=== PATIENT | female | born 1990 | race African-American/Black ===

== ENCOUNTER → 2017-03-16 | Outpatient (CLI) | payer MEDICAID ==
[~2017-03-16] MED LIST: PREN1TAB PO; [UNRECOGNIZED DRUG - CODE] PO
== END ==
LOC: LAB 15:36
PROVIDERS: ATTEND Nurse Practitioner Obstetrics & Gynecology
DX: J02.9 Acute pharyngitis, unspecified (principal)
CPT/HCPCS: 87070; 87631

== ENCOUNTER 2017-07-09 12:04 | Inpatient (IN) ==
--- OUTSIDE RECORDS SUMMARY | 2017-07-09 12:10 | External Medical Summary | Referral Summary ---
:1990 Author Organization [facility] Address [address] [place] [address] DARIEL Joseph [address] Care Team Providers Name Role Phone NO PCP, PT STATES Primary Care Physician Unavailable Encounter VC Date(s): 03/21/16 - 03/21/16 [facility] [address] [place] [phone] [place] Discharge Diagnosis: Skin rash Discharge Disposition: 01-Home or Self Care Attending Physician: Fermin Corona MD Admitting Physician: Fermin Corona MD Vital Signs Most recent to oldest [Reference Range]: 1 Peripheral Pulse Rate [60-100 bpm] 74 bpm (03/21/16 10:57 AM) Respiratory Rate [14-20 br/min] 18 br/min (03/21/16 10:57 AM) Blood Pressure [90-140/60-90 mmHg] 118/72 mmHg (03/21/16 10:57 AM) SpO2 98 % (03/21/16 10:57 AM) Problem List No data available for this section Allergies, Adverse Reactions, Alerts Substance Reaction Severity Status Keflex Active penicillin Active Medications Implanon 68 mg subcutaneous implant 68 mg, SubCutaneous, Once, # 1 Each, 0 Refill(s) Start Date: 03/21/16 Status: Orderedmultivitamin Daily, 0 Refill(s) Start Date: 03/21/16 Status: Ordered Results No data available for this section Immunizations No data available for this section Procedures No data available for this section Social History Social History Type Response Smoking Status Never smoker Assessment and Plan Extracted from: Title: DOC, rash Author: Fermin Corona MD Date: 03/21/16 Assessment/Plan 1.Skin rash Etiology of the rash is uncertain. Inflammatory papules suggest possible insect bites. I don't see anything to suggest scabies. We discussed management of the itching sensation. Try to avoid excessive scratching. Prescription given for Medrol Dosepak and discussed expectations/side effects. I suggested superintendent terminal antihistamine such as Claritin or Zyrtec. Follow-up if not responding to this approach.
--- OUTSIDE RECORDS SUMMARY | 2017-07-09 12:10 | External Medical Summary | Continuity of Care Document ---
:1990 Author Organization [facility] Address [address] [place], [place] [id number] Phone Support Name Relationship Address Phone Dulce Palmer parent [address] [phone] [place] [address] Allergies, Adverse Reactions, Alerts Substance Reaction Severity Status Penicillins Unknown Unknown Active CEPHALEXIN MONOHYDRATE rash Unknown Active Medications Medication Instructions Dosage Effective Dates Status Comments (start - stop) hydroxyzine HCl 50 take 1 - 2 tablet 50 MG - Active mg tablet by ORAL route every 6 hours as needed for itching Rhophylac 1,500 unit - Active (300 mcg)/2 mL injection syringe Protonix 40 mg take 1 tablet by 40 MG - Active tablet,delayed oral route every release day multivitamin tablet take 1 tablet by Not Available - Active oral route every day with food Problems Condition Effective Dates (start - stop) Clinical Status Oth related conditions, - second trimester Encounter for suprvsn of normal - , second trimester 15 weeks gestation of - Striking against unsp object w - subsequent fall, init encntr Encounter for suprvsn of normal - , third trimester 29 weeks gestation of - Oth diseases and conditions compl - preg/chldbrth Encounter for suprvsn of normal - , third trimester 32 weeks gestation of - Acute pharyngitis, unspecified - 22 weeks gestation of - Vaginitis, Acute Pelvic and perineal pain Oth noninflammatory disorders of vulva and perineum Oth noninflammatory disorders of vulva and perineum Encntr screen for infections w sexl mode of transmiss Menorrhagia Irregular Menses Irregular Menses Irregular Menses Irregular Menses Vomiting of , unspecified Irregular Menses - Dysfunctional Uterine Bleeding Encounter for initial prescription of contraceptive pills Encounter for surveillance of other contraceptives Encounter for surveillance of other - contraceptives Dysfunctional Uterine Bleeding Encounter for surveillance of other contraceptives Oth related conditions, - second trimester 20 weeks gestation of - Oth related conditions, - second trimester Encounter for suprvsn of normal - , second trimester 19 weeks gestation of - Oth diseases and conditions compl - preg/chldbrth 34 weeks gestation of - Right lower quadrant pain 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 Pap Smear Screening, Cervix Encounter for test, result - negative Encntr screen for infections w sexl - mode of transmiss Encounter for screening for oth - infec/parastc diseases Encounter for suprvsn of normal - , first trimester Encounter for screening of - mother 10 weeks gestation of - Encounter for suprvsn of normal - , second trimester 19 weeks gestation of - Encounter for suprvsn of normal - , second trimester 22 weeks gestation of - Encounter for suprvsn of normal - , second trimester 26 weeks gestation of - Encounter for suprvsn of normal - , second trimester 25 weeks gestation of - Encounter for suprvsn of normal - , third trimester 34 weeks gestation of - Active Procedures Procedure Date Unknown Results Test Name Date and Time Measure Units Reference Range Abnormal Flag Comments Unknown Advance Directives Directive Yes / No Effective Date File Name Unknown Encounters Encounter Practice Location Reason(s) Diagnoses Date Provider Care Team Description For Visit Members Tatiana [place] Encounter for May- Jose Referring In Womens suprvsn of normal 0-201 Robins. 700 Provider: Estephania BRADFORD, , third 7 Medical Jackie PO Box [email or web address] weeks Center [facility], 1522, gestation of Umesh Chamberlain, 120, Medical DARIEL [facility] [id number], [place], Umesh 120, [place] [id number] [place], tel:+ , [place]. [place], tel: [phone] tel:[phone] Associates Juan Pablo Oth diseases and May- Jose Referring In Womens Ultrasound conditions compl 0-201 Robins. 700 Provider: Estephania BRADFORD, [id number]/[email or web address] 7 Medical Jackie PO Box weeks gestation [facility], 1522, of Umesh Chamber[place], 120, Medical DARIEL [facility] [id number], [place], Umesh 120, [place] [id number] Juan Pablo, tel: , [place], tel:[phone] tel:[phone] Tatiana [place] Aug-0 León In Womens 2-201 Nora. Rosalia Mayorga PO [facility] [address], [address] [place], [facility] [place], 120, [id number], [place], [place], tel: [phone] , [place]. tel: [phone] Tatiana [place] Oth diseases and Apr- Jose Referring In Womens conditions compl 7-201 Robins. 700 Provider: Estephania BRADFORD, preg/chljoaorthEnco 7 Medical Jackie PO Box unter for suprvsn Center [facility], 1522, of normal Umesh Chamberlain, , third 120, Medical [place], [email or web address] [facility] [id number] gestation of [place], Umesh 120, [place] [id number] Juan Pablo, tel: , [place]. [place], tel: [phone] tel:[phone] Tatiana [place] Striking against Apr-0 León Referring In Womens unsp object w 5-201 Nora. Provider: Estephania BRADFORD, subsequent fall, 7 700 Jackie PO Box init Medical Lewis T, 152, encntrEncounter Center [address] [place] [address], for suprvsn of Umesh Chamberlain, normal , 120, Center [id number], third [email or web address] [place], [facility] 120, [place] weeks gestation Juan Pablo VIEIRA, tel:[phone] [place], , [place]. [id number]. tel: tel:[phone] [place] Encounter for Jt-2 Lewis Referring In Womens suprvsn of normal 0-201 Jackie. Provider: Estephania BRADFORD, , second 7 700 Jackie PO Box [id number] weeks Medical Lewis T, 152, gestation of Center [address] [place] [address], Umesh [place]lain [place], 120, Center [id number], Juan Pablo [facility] 120, [place] Juan Pablo VIEIRA, tel:[phone] DARIEL, , [place]. [id number]. tel: tel:[phone] [place] Encounter for Jt-0 Lewis Referring In Womens suprvsn of normal 9-201 Jackie. Provider: Estephania BRADFORD, , second 7 700 Jackie PO Box [email or web address] weeks Medical Lewis T, 152, gestation of Center [address] [place] [address], Umesh [place], 120, Center [id number], Juan Pablo [facility] 120, [place] Juan Pablo VIEIRA, tel:+ [phone] DARIEL, , [place]. [id number]. tel: tel:[phone] [place] Encounter for May-2 Lewis Referring In Womens suprvsn of normal 3-201 Jackie. Provider: Estephania BRADFORD, , second 7 700 Jackie PO Box [email or web address] weeks Medical Lewis T, 1522, gestation of Center [address] [place] [address], Umesh [place], 120, Center [id number], Juan Pablo [facility] 120, [place] Juan Pablo VIEIRA, tel:[phone] DARIEL, , [place]. [id number]. tel: tel:[phone] [place] Acute May-1 Lewis Referring In Womens pharyngitis, 8-201 Jackie. Provider: Health PA, [id number] 7 700 Jackie PO Box weeks gestation Medical Lewis T, 1522, of Center [facility] [place], , Umesh VIEIRA, 120, Center [id number], Juan Pablo [facility] 120, [place] Juan Pablo VIEIRA, tel:[phone] [place], , [place]. [id number]. tel: tel:[phone] Tatiana [place] Oth May-0 Lewis Referring In Womens related 8-201 Jackie. Provider: Health SANCHEZ, conditions, 7 700 Jackie PO Box second Medical Lewis T, 1522, [email or web address] weeks Center [facility] [place], gestation of Umesh Chamberlain, 120, Center [id number], Juan Pablo [facility] 120, [place] Juan Pablo VIEIRA, tel:[phone] [place], , [place]. [id number]. tel: tel:[phone] Tatiana [place] Oth Apr-2 Lewis Referring In Womens related 6-201 Jackie. Provider: Estephania PA, conditions, 7 700 Jackie PO Box second Medical Lewis T, 1522, trimesterEncounte Center [facility] [place], r for suprvsn of Umesh Chamberlain, normal , 120, Center [id number], second Juan Pablo [facility] 120, [place] [id number] weeks Jua nPablo VIEIRA, tel: gestation of [place], , [place]. [id number]. tel: tel:[phone] Tatiana [place] Encounter for Apr-2 Lewis Referring In Womens Ultrasound suprvsn of normal 6-201 Jackie. Provider: Health PA, , second 7 700 Jackie PO Box [id number] weeks Medical Lewis T, 1522, gestation of Center [facility] [place], Umesh Chamberlain, 120, Center [id number], Juan Pablo [facility] 120, [place] Juan Pablo VIEIRA, tel:[phone] [place], , [place]. [id number]. tel: tel:[phone] Associates [facility] Pablo Oth Mar-3 Lewis Referring In Womens related 0-201 Jackie. Provider: Estephania BRADFORD, conditions, 7 700 Jackie PO Box second Medical Lewis T, 152, trimesterEncounte Center [address] [place] [address], r for suprvsn of , [facility] DARIEL, normal , 120, Center [id number], second Juan Pablo [facility] 120, [place] [id number] weeks Juan Pablo VIEIRA, tel:[phone] gestation of [phone] [place], , [place]. [id number]. tel: tel:[phone] Associates [facility] Pablo Encntr screen for Feb-2 Lewis Referring In Womens infections w sexl 7-201 Jackie. Provider: Estephania BRADFORD, mode of 7 700 Jackie PO Box transmissEncounte Medical Lewis T, 152, r for screening Center [address] [place] [address], for oth [facility], infec/parastc 120, Center [id number], diseasesEncounter Juan Pablo [facility] 120, [place] for suprvsn of Juan Pablo VIEIRA, tel:+ normal , [phone] [place], first , [place]. [id number]. trimesterEncounte tel: tel:[phone] r for [phone] screening of weeks gestation of Associates [place] Pablo Irregular Menses Oct- Lewis Referring In Womens 0-201 Jackie. Provider: Estephania BRADFORD, 7 700 Jackie PO Box Medical Lewis T, 152, Center [address], [facility], 120, Center [id number], Juan Pablo [facility] 120, [place] Juan Pablo VIEIRA, tel: [phone] [place], , [place]. [id number]. tel: tel:[phone] Associates [facility] Irregular Menses Oct- Lewis Referring In Womens Ultrasound 0-201 Jackie. Provider: Estephania BRADFORD, 7 700 Jackie PO Box Medical Lewis T, 152, Center [address], [facility], 120, Center [id number], Juan Pablo [facility] 120, [place] Juan Pablo VIEIRA tel: [phone] [place], , [place]. [id number]. tel: tel: [phone] Associates [facility] Irregular Lewis Referring In Womens MensesVomiting of -201 Jackie. Provider: Health SANCHEZ, , 7 700 Jackie PO Box unspecified Medical Lewis T, 1522, Center [address], [facility], 120, [place] , Juan Pablo [facility] 120, Juan Pablo VIEIRA, tel: [phone] [place], , [place]. [id number]. tel: tel: [phone] Associates [facility] Pablo MenorrhagiaIrregu Lewis Referring In Womens lar 2-201 Jackie. Provider: Estephania BRADFORD, MensesIrregular 7 700 Nora León PO Box Mens Medical K, 700 1522, [place] [address], [facility] [place], 120, [facility] 120, , Juan Pablo [place], [facility], [place], tel: [phone]. , [place]. tel: tel: [phone] Associates Jaun Pablo Vaginitis, Aug-0 Lewis In Womens AcutePelvic and -201 Jackie. Health SANCHEZ, perineal pain 6 700 PO Box Medical [address]22, [place] [address] [place], [facility] DARIEL, 120, [id number], [place], DARIEL, tel:[phone] , [place]. tel: [phone] Associates [facility] Pablo Dysfunctional Aug-2 León In Womens Uterine 3-201 Nora. Health SANCHEZ, BleedingEncounter 6 700 PO Box for initial Medical 1522, prescription of Elias Kevin contraceptive , [facility], pillsEncounter 120, , for surveillance [place] Juan [place] of other [place], tel: contraceptivesEnc [phone] ounter [facility] , [place]. surveillance of tel: other [phone] contraceptives Associates Juan Pablo Right lower Caleb-2 León In Womens quadrant pain 9-201 Nora. Health PA, 6 700 PO Box Medical 1522, [place] [address] [place], 120, [id number], Juan Pablo [place], tel:+ [phone] , [place]. tel:[phone] Associates [facility] Pablo Oth May-0 León In Womens noninflammatory 5-201 Nroa. Health SANCHEZ, disorders of 6 700 PO Box vulva and Medical 1522, perineum [address] [place], 120, [id number], Juan [place], tel:[phone] , [place]. tel:[phone] Associates [facility] Pablo Ot May-0 Jeanie In Womens noninflammatory 2-201 Rebecca. Health PA, disorders of 6 700 PO Box vulva and Medical 1522, perineumEncntr [facility], screen for Umesh [place]lain, infections w sexl 120, , mode of transmiss [place], tel:+ [phone] , [place]. tel:[phone] Associates [facility] Pablo Dysfunctional Apr-0 León In Womens Uterine 8- Nora. Health SANCHEZ, BleedingEncounter 6 700 PO Box for surveillance Medical 1522, of other [place], contraceptives Umesh Chamberlain, 120, , [place], tel:+ [phone] , [place]. 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 Health PA, (routine) w/o abn 5 700 PO Box findingsPap Smear Medical 1522, Screening, [facility], CervixEncounter Umesh [place], for 120, , test, result [place] Juan [place] negative [place], tel:[phone] , [place]. tel:[phone] Associates [facility] Pablo Caleb-2 Jeanie In Womens 2-201 Rebecca. Health SANCHEZ, 5 700 PO Box Medical 1522, [place] [address] [place], 120, , [place], tel:+ [phone] , [place]. tel: [phone] Tatiana [place] Jan- León In Womens 9-201 Nora. Health PA, 5 700 PO [facility] 1522, [place] [address] [place], [facility] [place], 120, [id number], [facility] [place], tel:+ [phone] , [place]. tel: [phone] Tatiana [place] Apr- Jeanie In Womens 8-201 Rebecca. [employer] PA, 1 700 PO [facility] 1522, [place] [address] [place], [facility] [place], 120, [id number], [facility] [place], tel: [phone] , [place]. tel: [phone] Family History Family Member Diagnosis Age At Onset No family history of Colon Cancer No family history of Cardiovascular Disease No family history of Stroke No family history of Uterine Cancer No family history of Osteoporosis No family history of Breast Cancer Maternal Grandmother Ovarian Cancer No family history of Diabetes Paternal Grandfather Epilepsy Paternal Grandmother Hypertension Paternal Grandmother Renal disease Mother Thyroid Disorder Mother Cervical Cancer No family history of Lung Disease Immunizations Vaccine Date Status Comments Rhophylac completed Source: New Immunization Record Payers Payer name Insurance type Covered constitution party ID Authorization(s) [facility] [id number] [employer] - Medicaid [place] [id number] [facility] [id number] [employer] - Medicaid [place] [id number] Social History Type Description Quantity Date Captured Unknown Vital Signs Date / Height Weight BMI Pulse Blood Temperature Respiratory Body Head BMI Time: Rate Pressure Rate Surface Circumference percentile Area Unknown Chief Complaint And Reason For Visit Unknown Chief Complaint And Reason For Visit Reason For Referral Reason For Referral Unknown Plan Of Care Date Type Action Status Goal Lifestyle education regarding completed diet Goal Lifestyle education regarding completed diet Appointment Laurie Palmer BOOKED Future Order: Radiology Order Ultrasound OB Follow-up ([id number]) Ordered Future Order: Radiology Order Complete OB Ultrasound > 14 Ordered Weeks ([id number]) Date Type Problem Goal Intervention Status Start Date Unknown. History Of Present Illness Encounter Date Complaint History Of Present Illness This patient has no known history of present illness Functional Status Encounter Date Functional Assessment Cognitive Assessment Unknown Medications Administered Medication Instructions Dosage Effective Dates (start - stop) Status Comments Drug Treatment Unknown Instructions Date Instruction Additional Information risk factors identified by history anticipated course of care nutrition and weight gain counseling, special diet toxoplasmosis precautions (cats / raw meat) sexual activity exercise smoking counseling domestic violence seat belt use childbirth classes / hospital facilities hospital registration indications for ultrasound influenza vaccine environmental / work hazards travel tobacco (ask, advise, assess, assist and arrange) alcohol illicit / recreational drugs use of any medications (including supplements, vitamins, herbs, OTC drugs) HIV and other routine tests genetic testing new ob handbook Giving encouragement to exercise Related to Body mass index 27.0-27.9 Lifestyle education regarding diet Related to Body mass index 27.0-27.9 Giving encouragement to exercise Related to Body mass index 27.0-27.9 Lifestyle education regarding diet Related to Body mass index 27.0-27.9
--- OUTSIDE RECORDS SUMMARY | 2017-07-09 12:10 | External Medical Summary | Continuity of Care Document ---
:1990 Author Organization [facility] Address [address] [place], [place] [id number] Phone Support Name Relationship Address Phone Dulce Palmer parent [address] [phone] [place] [address] Allergies, Adverse Reactions, Alerts Substance Reaction Severity Status Penicillins Unknown Unknown Active CEPHALEXIN MONOHYDRATE rash Unknown Active Medications Medication Instructions Dosage Effective Dates Status Comments (start - stop) valacyclovir 500 mg take 1 tablet by 500 MG - Active tablet oral route every 12 hours Fioricet 50 mg-300 take 1 capsule by Not Available - Active mg-40 mg capsule oral route every 6 hours as needed not to exceed 6 capsules per 24hrs hydroxyzine HCl 50 take 1 - 2 [...] Dates (start - stop) Clinical Status Oth diseases and conditions compl - preg/chldbrth 34 weeks gestation of - Oth related conditions, - second trimester Encounter for suprvsn of normal - , second trimester 15 weeks gestation of - Striking against unsp object w - subsequent fall, init encntr Encounter for suprvsn of normal - , third trimester 29 weeks gestation of - Oth diseases and conditions compl - preg/chldbrth 32 weeks gestation of - Encounter for suprvsn of normal - , third trimester Encounter for suprvsn of normal - , third trimester Encounter for screening of - mother 36 weeks gestation of - Acute pharyngitis, unspecified - 22 weeks gestation of - Vaginitis, Acute Pelvic and perineal pain Oth noninflammatory disorders of vulva and perineum Oth noninflammatory disorders of vulva and perineum Encntr screen for infections w sexl mode of transmiss Menorrhagia Irregular Menses Irregular Menses Dysfunctional Uterine Bleeding Encounter for surveillance of other contraceptives Dysfunctional Uterine Bleeding Encounter for initial prescription of contraceptive pills Encounter for surveillance of other contraceptives Encounter for surveillance of other - contraceptives Vomiting of , unspecified Irregular Menses Irregular Menses - Irregular Menses Oth related conditions, - second trimester Encounter for suprvsn of normal - , second trimester 19 weeks gestation of - Oth related conditions, - second trimester 20 weeks gestation of - Encounter for test, result - negative 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 Pap Smear Screening, Cervix Right lower quadrant pain Encntr screen for infections w sexl - [...] third trimester 34 weeks gestation of - Encounter for suprvsn of normal - , third trimester 37 weeks gestation of - Active Procedures Procedure Date Ultrasnd preg uterus, flwup/repeat Results Test Name Date and Time Measure Units Reference Range Abnormal Flag Comments Unknown Advance Directives Directive Yes / No Effective Date File Name Unknown Encounters Encounter Practice Location Reason(s) Diagnoses Date Provider Care Team Description For Visit Members Tatiana [place] Encounter for May-3 Jose Referring In Womens suprvsn of normal 1-201 [place]. 700 Provider: Estephania [place], , third 7 Medical Jackie PO Box [id number] weeks [facility], 1522, gestation of [place], 120, Medical [facility] [id number], [place], [place] 120, [place] [id number] Juan Pablo, tel: , [place]. [place], tel: [phone]. [id number] tel:[phone] Tatiana [place] Encounter for Aug-2 Jose Referring In Womens suprvsn of normal 4-201 [place]. 700 Provider: Estephania BRADFORD, , third 7 Medical Jackie PO Box [facility], 1522, r for [place], screening of 120, Medical [place], [email or web address] [facility] of [place], [place] 120, [place] [id number] Juan Pablo, tel: , [place]. [place], tel: [phone]. [phone] tel:[phone] Tatiana [place] Aug-2 Jose In Womens 3-201 [place]. 700 [facility], 7 Medical PO Box Center 1522, U[place] Chamberlain, 120, Juan Pablo VIEIRA [id number], [place], [place] [id number] tel: , [place]. tel: [phone] Tatiana [place] Encounter for Aug-1 Jose Referring In Womens suprvsn of normal 0-201 Ar. 700 Provider: Estephania BRADFORD, , third 7 Medical Jackie PO Box weeks Center Debbie Quiros, 1521, gestation of [place], 120, Medical [facility] [id number], [place], [place] 120, [place] [id number] Juan Pablo, tel: , [place]. [place], tel:[phone]. [phone] tel:[phone] Associates Juan Pablo Oth diseases and May- Jose Referring In Womens Ultrasound conditions compl 0-201 [place]. 700 Provider: Estephania BRADFORD, preg/[id number] 7 Medical Jackie PO Box weeks gestation [place] Debbie Quiros, 1521, of [place] Chamberlain, 120, Medical [facility] [id number], [place], [facility] 120, [place] [id number] Juan Pablo, tel: , [place]. [place], tel:[phone]. [id number] tel:[phone] [facility] Oth diseases and Apr-2 Jose Referring In Womens conditions compl 7-201 [place]. 700 Provider: Estephania BRADFORD, [email or web address] 7 Medical Jackie PO Box weeks gestation [place] Debbie Quiros, 1521, of [place]lain, pregnancyEncounte 120, Medical DARIEL, r [facility] [id number], normal , [place], [facility] 120, [place] third trimester [id number] Juan Pablo, tel: , [place]. [place], tel: [phone]. [id number] tel:[phone] Tatiana [place] Striking against Caleb-0 León Referring In Womens unsp object w 5-201 Nora. Provider: Estephania BRADFORD, subsequent fall, [facility] Jackie PO Box init [facility], 1521, encntrEncounter [place] Mariana Kevin, for suprvsn of [place] Chamberlain, normal , 120, Center [id number], third [id number] [place], [facility] 120, [place] weeks gestation Juan Pablo VIEIRA, tel: of [phone] [place], [phone] , [place]. [id number]. tel: tel:[phone] Tatiana [place] Encounter for Jt-2 Lewis Referring In Womens suprvsn of normal 0-201 Jackie. Provider: Health SANCHEZ, , second 7 700 Jackie PO Box [email or web address] weeks Medical Lewis T, 1522, gestation of Center [address] [place] [address], Umesh Chamberlain [place], 120, Center [id number], Juan Pablo [facility] 120, [place] Juan Pablo VIEIRA, tel:[phone] [place], , [place]. [id number]. tel: tel:[phone] Associates [facility] Encounter for Jt-0 Lewis Referring In Womens suprvsn of normal 9-201 Jackie. Provider: Health SANCHEZ, , second 7 700 Jackie PO Box [email or web address] weeks Medical Lewis T, 1522, gestation of Center [address] [place] [address], Umesh Chamberlain, 120, Center [id number], Juan Pablo [facility] 120, [place] Juan Pablo VIEIRA, tel:[phone] [place], , [place]. [id number]. tel: tel:[phone] Tatiana [place] Encounter for May-2 Lewis Referring In Womens suprvsn of normal 3-201 Jackie. Provider: Estephania BRADFORD, , second 7 700 Jackie PO Box [email or web address] weeks Medical Lewis T, 1522, gestation of Center [address] [place] [address], Umesh Chamberlain [place], 120, Center [id number], Juan Pablo [facility] 120, [place] Juan Pablo VIEIRA, tel:[phone] [place], , [place]. [id number]. tel: tel:[phone] Tatiana [place] Acute May-1 Lewis Referring In Womens pharyngitis, 8-201 Jackie. Provider: Health SANCHEZ, [email or web address] 7 700 Jackie PO Box weeks gestation Medical Lewis T, 1522, of Center [address] [place] [address], Umesh [place], 120, Center [id number], Juan Pablo [place] 120, [place] Juan Pablo VIEIRA, tel:[phone] [place], , [place]. [id number]. tel: tel:[phone] Tatiana [place] Oth May-0 Lewis Referring In Womens related 8-201 Jackie. Provider: Health [place], conditions, 7 700 Jackie PO Box second Medical Lewis T, 1522, [email or web address] weeks Center 700 [place], gestation of Umesh Chamberlain, 120, Center [id number], Juan Pablo [facility] 120, [place] Juan Pablo VIEIRA, tel:[phone] [place], , [place]. [id number]. tel: tel:[phone] Tatiana [place] Oth Apr-2 Lewis Referring In Womens related 6-201 Jackie. Provider: Health [place], conditions, 7 700 Jackie PO Box second Medical Lewis T, 1522, [facility] [address] [place], [place] [address]ta, r for suprvsn of U[place] Chamberlain, normal , 120, Center [id number], [facility] Juan Pablo [facility] 120, [place] [id number] weeks Juan Pablo VIEIRA, tel:[phone] gestation of [id number] [place], , [place]. [id number]. tel: tel:[phone] Tatiana [place] Encounter for Apr-2 Lewis Referring In Womens Ultrasound suprvsn of normal 6-201 Jackie. Provider: Estephania BRADFORD, , second 7 700 Jackie PO Box [id number] weeks Medical Lewis T, 1522, gestation of Center [address] [place] [address], U[place] Chamberlain, 120, Center [id number], Juan Pablo [facility] 120, [place] Juan Pablo VIEIRA, tel:[phone] [place], , [place]. [id number]. tel: tel:[phone] Tatiana [place] Oth Mar-3 Lewis Referring In Womens related 0-201 Jackie. Provider: Health SANCHEZ, conditions, 7 700 Jackie PO Box second Medical Lewis T, 1522, trimesterEncounte Center [address] [place] [address], r for suprvsn of U[place] Chamberlain, normal , 120, Center [id number], second [facility] 120, [place] [id number] weeks Juan Pablo VIEIRA, tel:+ gestation of [phone] [place], , [place]. [id number]. tel: tel:[phone] [facility] Encntr screen for Feb-2 Lewis Referring In Womens infections w sexl 7-201 Jackie. Provider: Estephania BRADFORD, mode of 7 700 Jackie PO Box transmissEncounte Medical Lewis T, 1522, r for screening Center [facility] [place], for oth , [facility], infec/parastc 120, Center [id number], diseasesEncounter [facility] 120, [place] for suprvsn of Juan Pablo VIEIRA, tel:[phone] normal , [phone] [place], first , [place]. [id number]. trimesterEncounte tel: tel:[phone] r for [phone] screening of [id number] weeks gestation of Associates Juan Pablo Irregular Menses Lewis Referring In Womens 0-201 Jackie. Provider: Estephania BRADFORD, 7 700 Jackie PO Box Medical Lewis T, 1522, Center [facility] Dr [place], [facility], 120, Center [id number], [facility] 120, [place] Juan Pablo VIEIRA, tel:[phone] [place], , [place]. [id number]. tel: tel:[phone] Tatiana [place] Irregular Menses Lewis Referring In Womens Ultrasound 0-201 Jackie. Provider: Estephania BRADFORD, 7 700 Jackie PO Box Medical Lewis T, 1522, Center [facility] Dr [place], [facility], 120, Center [id number], [facility] 120, [place] Juan Pablo VIEIRA, tel:[phone] [place], , [place]. [id number]. tel: tel:[phone] [facility] Vomiting of Lewis Referring In Womens , 9-201 Jackie. Provider: Estephania BRADFORD, unspecifiedIrregu 7 700 Jackie PO Box lar Menses Medical Lewis T, 1522, Center [address] [place], [facility] [place], 120, [place] [id number], Juan Pablo, [facility] 120, DARI[place], Juan Pablo, tel:[phone] [place], , . [id number]. tel: tel: [phone] [facility] MenorrhagiaIrregu Lewis Referring In Womens lar 2-201 Jackie. Provider: Estephania BRADFORD, MensesIrregular 7 700 Nora León PO Box Menses Medical K, 700 1522, [place] [address], [facility] [place], 120, [facility] 120, , Juan [place], [place], [place], tel:[phone]. , [place]. tel: tel: [phone] [facility] Vaginitis, Aug-0 Lewis In Womens AcutePelvic and -201 Jackie. Estephania BRADFORD, perineal pain 6 700 PO Box Medical 1522, [place] [address] [place], [facility], 120, [id number], [place], [place], tel:[phone] , [place]. tel: [phone] [facility] Dysfunctional Aug-2 León In Womens Uterine 3-201 Nora. Health SANCHEZ, BleedingEncounter 6 700 PO Box for initial Medical 1522, prescription of [place], contraceptive , [facility], pillsEncounter 120, , for surveillance [facility] of other [place], tel: contraceptivesEnc [phone] [facility] , . surveillance of tel: other [phone] contraceptives Associates Juan Pablo Right lower Caleb-2 León In Womens quadrant pain 9-201 Nora. Estephania BRADFORD, 6 700 PO Box Medical 1522, [place] [address] [place], [facility], 120, [id number], [place], [place], tel: [phone] , [place]. tel: [phone] Associates [facility] Pablo Oth May-0 León In Womens noninflammatory 5-201 Nora. Health SANCHEZ, disorders of 6 700 PO Box vulva and Medical 1522, perineum Center [address] [place], 120, , [place], tel:+ [phone] , [place]. tel:[phone] [facility] Oth May-0 Jeanie In Womens noninflammatory 2-201 Rebecca. Health SANCHEZ, disorders of 6 700 PO Box vulva and Medical 1522, perineumEncntr [facility], screen for [place], infections w sexl 120, , mode of transmiss [place], [place], tel:[phone] , [place]. tel:[phone] [facility] Dysfunctional Apr-0 León In Womens Uterine 8- Nora. Health SANCHEZ, BleedingEncounter 6 700 PO Box for surveillance Medical 1522, of other Center [place], contraceptives Umesh [place], 120, , [place], [place], tel:[phone] , [place]. tel: [phone] Tatiana [place] Encounter for Dec-0 León In Womens test, - Nora. 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 tel: [phone] Tatiana [place] Caleb-2 Jeanie In Womens 2-201 Rebecca. Health SANCHEZ, 5 700 PO Box Medical 1522, [place] [address] [place], 120, [id number], [place], [place], tel:[phone] , [place]. tel:[phone] Tatiana [place] Apr-0 León In Womens 9-201 Nora. Health SANCHEZ, 5 700 PO Box Medical 1522, [place] [address] [place], 120, , Juan Pablo [place], tel:[phone] , [place]. tel:[phone] Tatiana [place] Jeanie In Womens 8-201 Rebecca. [facility], 1 700 PO [facility] 1522, [place] [address] [place], [facility] [place], 120, [id number], [place], [place], [phone] , [place]. tel: [phone] Family History Family Member Diagnosis Age At [...] Lung Disease Immunizations Vaccine Date Status Comments Tdap completed Source: New Immunization Record Rhophyla completed Source: New Immunization Record Payers Payer name Insurance type Covered green party ID Authorization(s) [facility] [id number] [employer] [place] [employer] - Medicaid MC [id number] [facility] [id number] [employer] [place] [employer] - Medicaid [place] [id number] [facility] [id number] [employer] [place] [employer] - Medicaid [place] [id number] Social History Type Description Quantity Date Captured [...] Future Order: Radiology Order Ultrasound OB Follow-up ([id number]) Ordered Future Order: Radiology Order Complete OB Ultrasound > 14 Ordered Weeks ([id number]) Date Type Problem Goal Intervention Status Start [...]
--- OUTSIDE RECORDS SUMMARY | 2017-07-09 12:10 | External Medical Summary ---
:1990 Author Organization [employer] Care Team Providers Name Role Phone Arcadiosheelasheela Cassia Provider Role Unavailable Allergies, Adverse Reactions, Alerts Substance Reaction Event Type Penicillin Info Not Available Drug Allergy Keflex Info Not Available Drug Allergy steroids vomiting Non Drug Allergy Problems Problem Type Condition Code Onset Dates Condition Status Assessment Intractable migraine with aura with G43.111 Active status migrainosus Medications Medication Code Code Instructions Start End Status Dosage System Date Date Promethazine HCl [facility] 50074-89 12.5 MG Orally Jun 30, Jul 30, 1 tablet 40-01 Daily PRN 2015 2015 migraine Multivitamins NDC 59675-23 Orally as directed 46-10 [place] [address]-37 50 MCG/ACT April 22, spray in 53-01 Nasally each 2012 [place] [address] 25 MG Orally Jun 30, One at 35-00 Once/week prn 2015 beginning of migraine, may repeat in two hours Procedures Procedure Coding System Code Date INJECTION (plus drug) CPT-4 12636 Jun 30, 2016 TORADOL 30MG CPT-4 J1885 Jun 30, 2016 DEXAMETHASONE SODIUM PHOSPHATE CPT-4 J1100 Jun 30, 2016 OFFICE VISIT, EST-LOW COMPLEXITY (15 MIN.) CPT-4 91544 Jun 30, 2016 Vital Signs Date/Time: Jun 30, 2016 Temperature 98.5 F Height 64 in Weight 160.12 lbs Blood Pressure Diastolic 82 mm Hg Blood Pressure Systolic 118 mm Hg Cardiac Monitoring Heart Rate 68 /min BMI 27.48 Index Oximetry 98 % Respiratory Rate 16 /min Results No Known Results Summary Purpose [employer]ClinicalWorks Submission
--- OUTSIDE RECORDS SUMMARY | 2017-07-09 12:10 | External Medical Summary | Continuity of Care Document ---
:1990 Author Organization [facility] Address [address] [place], [place] [id number] Phone Support Name Relationship Address Phone Dulce Palmer parent [address] [phone] [place] [address] Allergies, Adverse Reactions, Alerts Substance Reaction Severity Status Penicillins Unknown Unknown Active CEPHALEXIN MONOHYDRATE rash Unknown Active Medications Medication Instructions Dosage Effective Dates Status Comments (start - stop) Rhophylac 1,500 unit - Active (300 mcg)/2 mL injection syringe Fioricet 50 mg-300 take 1 capsule by Not Available - Active mg-40 mg capsule oral route every 6 hours as needed not to exceed 6 capsules per 24hrs Protonix 40 mg take 1 tablet by 40 MG - Active tablet,delayed oral route every release day multivitamin tablet take 1 tablet by Not Available - Active oral route every day with food Problems Condition Effective Dates (start - stop) Clinical Status Striking against unsp object w - subsequent fall, in encntr Encounter for suprvsn of normal - , third trimester 29 weeks gestation of - Oth related conditions, - second trimester Encounter for suprvsn of normal - , second trimester 15 weeks gestation of - Acute pharyngitis, unspecified [...] Menses Oth related conditions, - second trimester 20 weeks gestation of - Encounter for test, result - negative 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 Provider: Estephania [place], subsequent fall, 700 Jackie PO Box in Medical Debbie T, 1522, encntrEncounter Center [address] [place], for suprvsn of Umesh Chamberlain, normal , 120, Center [id number], third [id number] Juan Pablo, [facility] 120, [place] weeks gestation Juan Pablo VIEIRA, tel:+ of [phone] [place], , [place]. [id number]. tel: tel:[phone] Tatiana Almeida Encounter for Jt-2 Lewis Referring In Womens suprvsn of normal 0-201 Jackie. Provider: Health SANCHEZ, , second 7 700 Jackie PO Box [id number] weeks Medical Lewis T, 1522, gestation of Center [address] [place] [address], Umesh Chamberlain [place], 120, Center [id number], Juan Pablo [facility] 120, [place] Juan Pablo VIEIRA, tel:[phone] [place], , [place]. [id number]. tel: tel:[phone] Tatiana [place] Encounter for Jt-0 Lewis Referring In Womens suprvsn of normal 9-201 Jackie. Provider: Health SANCHEZ, , second 7 700 Jackie PO Box [id number] weeks Medical Lewis T, 1522, gestation of Center [address] [place] [address], Umesh Chamberlain [place], 120, Center [id number], Juan Pablo [facility] 120, [place] Juan Pablo VIEIRA, tel:[phone] [place], , [place]. [id number]. tel: tel:[phone] Tatiana [place] Encounter for May-2 Lewis Referring In Womens suprvsn of normal 3-201 Jackie. Provider: Health SANCHEZ, , second 7 700 Jackie PO Box [id number] weeks Medical Lewis T, 1522, gestation of Center [address] [place] [address], Umesh [place], 120, Center [id number], Juan Pablo [facility] 120, [place] Juan Pablo VIEIRA, tel:[phone] [place], , [place]. [id number]. tel: tel:[phone] Tatiana Almeida Acute May-1 Lewis Referring In Womens pharyngitis, 8-201 Jackie. Provider: Estephania BRADFORD, [id number] 7 700 Jackie PO Box weeks gestation Medical Lewis T, 1522, of Center [facility] Dr Kevin [facility] Medical [place], 120, Center [id number], Juan Pablo [facility] 120, [place] Juan Pablo VIEIRA, tel:+ [phone] [place], , [place]. [id number]. tel: tel:[phone] Tatiana Almeida Oth May-0 Lewis Referring In Womens related 8-201 Jackie. Provider: Health PA, conditions, 7 700 Jackie PO Box second Medical Lewis T, 1522, [id number] weeks Center [address] [place], gestation of Umesh Chamberlain, 120, Center [id number], Juan Pablo [facility] 120, [place] Juan Pablo VIEIRA, tel:[phone] [place], , [place]. [id number]. tel: tel:[phone] Tatiana Almeida Oth Apr-2 Lewis Referring In Womens related 6-201 Jackie. Provider: Health PA, conditions, 7 700 Jackie PO Box second Medical Lewis T, 1522, trimesterEncounte Center [facility] [place], r for suprvsn of Umesh Chamberlain, normal , 120, Center [id number], second Umesh [place] 120, [place] weeks Juan Pablo VIEIRA, tel:+ gestation of [phone] [place], , [place]. [id number]. tel: tel:[phone] Tatiana [place] Encounter for Apr-2 Lewis Referring In Womens Ultrasound suprvsn of normal 6-201 Jackie. Provider: Health PA, , second 7 700 Jackie PO Box [id number] weeks Medical Lewis T, 1522, gestation of Center [facility] [place], Umesh Chamberlain, 120, Center [id number], Juan Pablo [facility] 120, [place] Juan Pablo VIEIRA, tel:+ [phone] [place], , [place]. [id number]. tel: tel:[phone] Tatiana Almeida Apr-2 Lewis In Womens 0-201 Jackie. Health PA, 7 700 PO Box Medical 15[address], [place] [address] [place], [facility], 120, [id number], [place], [place], tel:[phone] , [place]. tel: [phone] [facility] Oth Mar-3 Lewis Referring In Womens related 0-201 Jackie. Provider: Estephania BRADFORD, conditions, 7 700 Jackie PO Box second Medical Lewis T, 152, trimesterEncounte Center [address] [place] [address], r for suprvsn of , [facility] [place], normal , 120, Center [id number], banner Juan Pablo [facility] 120, [place] [id number] weeks Juan Pablo VIEIRA, tel:+ gestation of [phone] [place], , [place]. [id number]. tel: tel: [phone] [facility] Encntr screen for Feb-2 Lewis Referring In Womens infections w sexl 7-201 Jackie. Provider: Estephania BRADFORD, mode of 7 700 Jackie PO Box transmissEncounte Medical Lewis T, 152, r for screening Center [address] [place] [address], for oth Dr [facility] DARIEL, infec/parastc 120, Center [id number], [facility] [place] for suprvsn of Juan Pablo VIEIRA, tel: normal , [phone] [place], first , [place]. [id number]. trimesterEncounte tel: tel:[phone] r for [phone] screening of weeks gestation of [facility] Irregular Menses Oct-3 Lewis Referring In Womens 0-201 Jackie. Provider: Estephania BRADFORD, 7 700 Jackie PO Box Medical Lewis T, 1522, Center [facility] Dr [place] [facility], 120, Center [id number], Juan Pablo [facility] 120, [place] Juan Pablo VIEIRA, tel:[phone] [place], , [place]. [id number]. tel: tel:[phone] [facility] Irregular Menses Oct-3 Lewis Referring In Womens Ultrasound 0-201 Jackie. Provider: Estephania BRADFORD, 7 700 Jackie PO Box Medical Lewis T, 1522, Center [facility] [address] [place], [facility] [place], 120, [place] [id number], Juan Pablo, [facility] 120, Juan Pablo VIEIRA, tel: [phone] [place], , . [id number]. tel: tel: [phone] [facility] Vomiting of Lewis Referring In Womens , 9-201 Jackie. Provider: Estephania BRADFORD, unspecifiedIrregu 7 700 Jackie PO Box lar Menses Medical Lewis T, 1522, Center [facility] Dr [place], [facility], 120, [place] [id number], Juan Pablo, [facility] 120, Juan Pablo VIEIRA, tel: [phone] [place], , [place]. [id number]. tel: tel: [phone] [facility] MenorrhagiaIrregu Lewis Referring In Womens lar 2-201 Jackie. Provider: Estephania BRADFORD, MensesIrregular 7 700 Nora León PO Box Menses Medical K, 700 1522, [place] [address], [facility] [place], 120, [facility] 120, , Juan Pablo [place], [place], [place], tel: [phone]. , [place]. tel: tel: [phone] [facility] Vaginitis, Nov-0 Lewis In Womens AcutePelvic and -201 Jackie. Estephania BRADFORD, perineal pain 6 700 PO Box Medical [address], [place] [address] [place], [facility] [place], 120, [id number], [place], tel: [phone] , [place]. tel: [phone] [facility] Dysfunctional Aug-2 León In Womens Uterine 3-201 Nora. Estephania BRADFORD, BleedingEncounter 6 700 PO Box for initial Medical 1522, prescription of Elias Kevin, contraceptive , [facility], pillsEncounter 120, , for surveillance [place] Juan Pablo of other [place], tel: contraceptivesEnc [phone] [facility] , . surveillance of tel: other [phone] contraceptives [facility] Right lower Caleb-2 León In Womens quadrant pain 9- Nora. Health SANCHEZ, 6 700 PO Box Medical 1522, [place], Umesh Chamberlain, 120, , [place], [place], tel:+ [phone] , [place]. tel: [phone] [facility] Oth May-0 León In Womens noninflammatory 5-201 Nora. Health SANCHEZ, disorders of 6 700 PO Box vulva and Medical 1522, perineum Center Dr [place], 120, , [place], [place], tel:[phone] , [place]. tel: [phone] [facility] Oth May-0 Jeanie In Womens noninflammatory 2-201 Rebecca. Health SANCHEZ, disorders of 6 700 PO Box vulva and Medical 1522, perineumEncntr [facility], screen for Umesh Chamberlain, infections w sexl 120, , mode of transmiss [place], [place], tel:[phone] , [place]. tel: [phone] [facility] Dysfunctional Apr-0 León In Womens Uterine - Nora. Health SANCHEZ, BleedingEncounter 6 700 PO Box for surveillance Medical 1522, of other Center [place], contraceptives Umesh Chamberlain, 120, , [place], [place], tel: [phone] , [place]. tel: [phone] [facility] Encounter for Dec-0 León In Womens test, 8- Nora. 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 tel: [phone] Tatiana [place] Caleb-2 Jeanie In Womens 2-201 Rebecca. Health [facility], 5 700 PO Box Medical [address], [place] [address] [place], [place], 120, [id number], [facility] [place], tel:+ [phone] , [place]. tel: [phone] [facility] Jan-0 León In Womens 9-201 Nora. [facility], 5 700 PO Box Medical 1522, [place] [address] [place], [place], 120, [id number], [facility] [place], tel:[phone] , [place]. tel: [phone] [facility] Apr- Jeanie In Womens 8-201 Rebecca. Health [facility], 1 700 PO Box Medical 15[address], [place] [address] [place], [facility] [place], 120, [id number], [facility] [place], tel:[phone] , [place]. tel: [phone] Family History Family Member Diagnosis Age At [...] Insurance type Covered constitution party ID Authorization(s) [facility] [id number] [employer] [place] [employer] - Medicaid [place] [id number] [facility] [id number] [employer] - Medicaid [place] [id number] Social History Type Description Quantity Date Captured Alcohol Use Details No Caffeine Use Details Unknown Tobacco Use Status Never smoked tobacco Smoking Status Never smoker Vital Signs Date / Height Weight BMI Pulse Blood Temperature Respiratory Body Head BMI Time: Rate Pressure Rate Surface Circumference percentile Area 170.30 30.6 122/79 -2017 lbs 5 mm[Hg] 4:07 kg/m PM eter (2) Chief Complaint And Reason For Visit Unknown Chief Complaint And Reason For Visit Reason For Referral Reason For Referral Unknown Plan Of Care Date Type Action Status Goal Lifestyle education regarding completed diet Goal Lifestyle education regarding completed diet Appointment Laurie Palmer BOOKED Future Order: Radiology Order Complete OB Ultrasound > 14 Ordered Weeks ([id number]) Date Type Problem Goal Intervention Status Start [...] childbirth classes / hospital facilities hospital registration genetic testing indications for ultrasound influenza vaccine environmental / work hazards travel tobacco (ask, advise, assess, assist and arrange) alcohol illicit / recreational drugs use of any medications (including supplements, vitamins, herbs, OTC drugs) HIV and other routine tests new ob handbook Giving encouragement to exercise Related to Body mass index 27.0-27.9 Lifestyle education regarding diet Related to Body mass index 27.0-27.9 Giving encouragement to exercise Related to Body mass index 27.0-27.9 Lifestyle education regarding diet Related to Body mass index 27.0-27.9
--- OUTSIDE RECORDS SUMMARY | 2017-07-09 12:10 | External Medical Summary | Continuity of Care Document ---
:1990 Author Organization [facility] [employer] [facility] Address [address] [place], [place] [id number] Phone Support Name Relationship Address Phone Dulce Palmer parent [address] [phone] [place] [address] Allergies, Adverse Reactions, Alerts Substance Reaction Severity [...] Effective Dates (start - stop) Clinical Status Encounter for suprvsn of normal - , third trimester 34 weeks gestation of - Oth related [...] trimester 20 weeks gestation of - Oth diseases and conditions compl - preg/chldbrth 34 weeks gestation of - Encounter for test, result - negative Encntr for ob gyn exam (general) - (routine) w/o abn findings [...] gestation of - Active Procedures Procedure Date OB Visit No Charge Results Test Name Date and Time Measure Units Reference Range Abnormal Flag Comments Unknown Advance Directives Directive Yes / No Effective Date File Name Unknown Encounters Encounter Practice Location Reason(s) Diagnoses Date Provider Care Team Description For Visit Members Tatiana [place] Encounter for May-3 Jose Referring In Womens suprvsn of normal 1-201 Ar. 700 Provider: Health [place], , third 7 Medical Jackie PO Box [email or web address] weeks [facility] , 1522, gestation of Umesh Chamberlain, 120, Medical DARIEL [facility] [id number], [place], [facility] 120, [place] [id number] Juan Pablo, tel: , [place]. [place], tel: [phone]. [id number] tel:[phone] Tatiana [place] Encounter for Aug-2 Jose Referring In Womens suprvsn of normal 4-201 Ar. 700 Provider: Health [place], , third 7 Medical Jackie PO Box trimesterEncounte [facility], 1522, r for Umesh Chamberlain, screening of 120, Medical [place], [id number] [facility] [id number], gestation of [place], [facility] 120, [place] [id number] Juan Pablo, tel: , [place]. [place], tel: [phone]. [id number] tel:[phone] Tatiana [place] Aug-2 Jose In Womens 3-201 Ar. 700 [facility], 7 Medical PO Box [place] 1522, Umesh Chamberlain, 120, [place], [id number], [place], [place] [id number] tel: , [place]. tel: [phone] Tatiana [place] Encounter for Aug-1 Jose Referring In Womens suprvsn of normal 0-201 Ar. 700 Provider: Health SANCHEZ, , third 7 Medical Jackie PO Box [id number] weeks Center Debbie Quiros, 152, gestation of Umesh Chamberlain, 120, Medical Juan Pablo [facility] [id number], [place], Umesh 120, [place] [id number] Juan Pablo, tel:+ , [place]. [place], tel:[phone]. [id number] tel:[phone] Associates [facility] Pablo Oth diseases and Jose Referring In Womens Ultrasound conditions compl 0-201 [place]. 700 Provider: Health SANCHEZ, preg/[id number] 7 Medical Jackie PO Box weeks gestation [place] Debbie Quiros, 1521, of Umesh Chamberlain, 120, Medical Juan Pablo VIEIRA, [place] [id number], [place], [facility] 120, [place] [id number] Juan Pablo, tel: , [place]. [place], tel:[phone]. [id number] tel:[phone] [facility] Oth diseases and Apr- Jose Referring In Womens conditions compl 7-201 [place]. 700 Provider: Estephania BRADFORD, preg/uvpsqbfd27 7 Medical Jackie PO Box weeks gestation Center Debbie Quiros, 1521, of Umesh Chamberlain, pregnancyEncounte 120, Medical DARIEL, r for suprvsn of [facility] [id number], normal , [place], [facility] 120, [place] third trimester [id number] Juan Pablo, tel: , [place]. [place], tel: [phone]. [id number] tel:[phone] Tatiana [place] Striking against Caleb-0 León Referring In Womens unsp object w 5-201 Nora. Provider: Estephania BRADFORD, subsequent [facility] Jackie PO Box init Medical Lewis , 1521, encntrEncounter [place] Mariana Kevin, for suprvsn of Umesh Chamberlain, normal , 120, Center [id number], third [id number] [place], [facility] 120, [place] weeks gestation Juan Pablo VIEIRA, tel: of [phone] [place], , [place]. [id number]. tel: tel:[phone] Tatiana [place] Encounter for Jt-2 Lewis Referring In Womens suprvsn of normal 0-201 Jackie. Provider: Health SANCHEZ, , second 7 700 Jackie PO Box weeks Medical Lewis T, 1522, gestation of Center [address] [place] [address], Umesh Chamberlain [place], 120, Center [id number], Juan Pablo [facility] 120, [place] Juan Pablo VIEIRA, tel:[phone] [place], , [place]. [id number]. tel: tel:[phone] Tatiana [place] Encounter for Jt-0 Lewis Referring In Womens suprvsn of normal 9-201 Jackie. Provider: Health SANCHEZ, , second 7 700 Jackie PO Box [email or web address] weeks Medical Lewis T, 1522, gestation of Center [address] [place] [address], Umesh Chamberlain [place], 120, [place] [id number], Juan Pablo [facility] 120, [place] Juan Pablo VIEIRA, tel:[phone] DARIEL, , [place]. [id number]. tel: tel:[phone] Tatiana [place] Encounter for May-2 Lewis Referring In Womens suprvsn of normal 3-201 Jackie. Provider: Health SANCHEZ, , second 7 700 Jackie PO Box [email or web address] weeks Medical Lewis T, 1522, gestation of Center [address] [place] [address], Umesh Chamberlain [place], 120, Center [id number], Juan Pablo [facility] 120, [place] Juan Pablo VIEIRA, tel: [phone] DARIEL, , [place]. [id number]. tel: tel:[phone] Tatiana [place] Acute May-1 Lewis Referring In Womens pharyngitis, 8-201 Jackie. Provider: Health SANCHEZ, [id number] 7 700 Jackie PO Box weeks gestation Medical Lewis T, 1522, of Center [address] [place], [place] [address], Umesh Chamberlain [place], 120, Center [id number], Juan Pablo [facility] 120, [place] Juan Pablo VIEIRA, tel:[phone] DARIEL, , [place]. [id number]. tel: tel:[phone] Tatiana [place] Oth May-0 Lewis Referring In Womens related 8-201 Jackie. Provider: Health PA, conditions, 7 700 Jackie PO Box second Medical Lewis T, 1522, [id number] weeks Center 700 [place], gestation of Umesh Chamberlain, 120, Center [id number], Juan Pablo Umesh 120, [place] Juan Pablo VIEIRA, tel:[phone] [place], , [place]. [id number]. tel: tel:[phone] Tatiana [place] Oth Apr-2 Lewis Referring In Womens related 6-201 Jackie. Provider: Health PA, conditions, 7 700 Jackie PO Box second Medical Lewis T, 1522, trimesterEncounte Center 700 [place], r for suprvsn of Umesh Chamberlain, normal , 120, Center [id number], second Juan Pablo Umesh 120, [place] [email or web address] weeks Juan Pablo VIEIRA, tel:[phone] gestation of [phone] [place], , [place]. [id number]. tel: tel:[phone] Tatiana [place] Encounter for Apr-2 Lewis Referring In Womens Ultrasound suprvsn of normal 6-201 Jackie. Provider: Health PA, , second 7 700 Jackie PO Box [email or web address] weeks Medical Lewis T, 1522, gestation of Center [address] [place] [address], Umesh Chamberlain, 120, Center [id number], Juan Pablo Umesh 120, [place] Juan Pablo VIEIRA, tel: [phone] [place], , [place]. [id number]. tel: tel:[phone] Tatiana [place] Oth Mar-3 Lewis Referring In Womens related 0-201 Jackie. Provider: Health PA, conditions, 7 700 Jackie PO Box second Medical Lewis T, 1522, trimesterEncounte Center 700 [place], r for suprvsn of Umesh Chamberlain, normal , 120, Center [id number], second Juan Pablo Umesh 120, [place] [id number] weeks Juan Pablo VIEIRA tel:+ gestation of [phone] [place], , [place]. [id number]. tel: tel:[phone] Associates [facility] Pablo Encntr screen for Feb-2 Lewis Referring In Womens infections w sexl 7-201 Jackie. Provider: Estephania BRADFORD, mode of 7 700 Jackie PO Box transmissEncounte Medical Lewis T, 1522, r for screening [facility], for oth , [facility], infec/parastc 120, Center [id number], diseasesEncounter [place], [facility] 120, [place] for suprvsn of Juan Pablo VIEIRA, tel:+ normal , [phone] [place], first , [place]. [id number]. trimesterEncounte tel: tel:[phone] r for [phone] screening of [id number] weeks gestation of Associates Juan Pablo Irregular Menses Lewis Referring In Womens 0-201 Jackie. Provider: Estephania BRADOFRD, 7 700 Jackie PO Box Medical Lewis T, 152, Center [facility] [address] [place], [facility], 120, Center [id number], [facility], [place] Juan Pablo VIEIRA, tel:[phone] [place], , [place]. [id number]. tel: tel:[phone] Tatiana [place] Irregular Menses Lewis Referring In Womens Ultrasound 0-201 Jackie. Provider: Estephania BRADFORD, 7 700 Jackie PO Box Medical Lewis T, 1522, Center [facility] [address] [place], [facility], 120, Center [id number], Juan Pablo [facility] 120, [place] Juan Pablo VIEIRA, tel:[phone] [place], , [place]. [id number]. tel: tel:[phone] Associates [facility] Vomiting of Lewis Referring In Womens , 9-201 Jackie. Provider: Estephania BRADFORD, unspecifiedIrregu 7 700 Jackie PO Box lar Menses Medical Lewis T, 1522, Center [facility] [address] [place], [facility] [place], 120, [place] , Juan Pablo [facility] 120, DARIEL, Juan Pablo, tel: [phone] [place], , . [id number]. tel: tel: [phone] [facility] MenorrhagiaIrregu Lewis Referring In Womens lar 2-201 Jackie. Provider: Estephania BRADFORD, MensesIrregular 7 700 Nora León PO Box Menses Medical K, 700 1522, [place], [facility] [place], 120, [facility] 120, , Juan Pablo [place], [place], [place], tel: [phone]. , [place]. tel: tel: [phone] [facility] Vaginitis, Nov-0 Lewis In Womens AcutePelvic and 4-201 Jackie. Estephania BRADFORD, perineal pain 6 700 PO Box Medical 1522, [address] [place], [facility], 120, , [place], [place], tel: [phone] , [place]. tel: [phone] Associates [facility] Dysfunctional Aug-2 León In Womens Uterine 3-201 Nora. Estephania BRADFORD, BleedingEncounter 6 700 PO Box for initial Medical 1522, prescription of [place], contraceptive , [facility], pillsEncounter 120, , for surveillance Juan Pablo of other [place], tel: contraceptivesEnc [phone] [facility] , . surveillance of tel: other [phone] contraceptives Associates JuanP ablo Right lower Caleb-2 León In Womens quadrant pain 9-201 Nora. Estephania BRADFORD, 6 700 PO Box Medical 1522, [address] [place], [facility], 120, , [place], [place], tel: [phone] , [place]. tel: [phone] Associates [facility] Oth May-0 León In Womens noninflammatory 5-201 Nora. Health SANCHEZ, disorders of 6 700 PO Box vulva and Medical 1522, perineum Center Dr Kevin Ste [place], 120, [id number], [place], tel:+ [phone] , [place]. tel: [phone] Tatiana [place] Oth May-0 Jeanie In Womens noninflammatory 2-201 Rebecca. Health SANCHEZ, disorders of 6 700 PO Box vulva and Medical 1522, perineumEncntr [facility], screen for Umesh Chamberlain, infections w sexl 120, [id number], mode of transmiss [place], tel:+ [phone] , [place]. tel: [phone] Tatiana [place] Dysfunctional Apr-0 León In Womens Uterine 8- Nora. Estephania BRADFORD, BleedingEncounter 6 700 PO Box for surveillance Medical 1522, of other Center [place], contraceptives Umesh Chamberlain, 120, , [place], [place], tel:[phone] , [place]. tel: [phone] Tatiana [place] Encounter for Dec-0 León In Womens test, 8- Nora. Health SANCHEZ, result 5 700 PO Box negativeEncntr Medical 1522, [facility] Umesh Chamberlain, (routine) w/o abn 120, [id number], findingsPap Smear [place], Screening, [facility] [place], tel:[phone] , [place]. tel: [phone] Tatiana [place] Apr-2 Jeanie In Womens 2-201 Rebecca. Estephania BRADFORD, 5 700 PO Box Medical 1522, [address] [place], 120, [id number], [place], tel:+ [phone] , [place]. tel: [phone] Tatiana [place] Apr-0 León In Womens 9-201 Nora. Estephania BRADFORD, 5 700 PO Box Medical 1522, [place] [address] [place], 120, [id number], [place], [place], tel:[phone] , [place]. tel: [phone] Tatiana [place] Caleb-1 Jeanie In Womens 8-201 Rebecca. [facility], 1 700 [place] [id number] [address] [place], [facility], 120, [id number], [place], tel:[phone] , [place]. tel: [phone] Family History Family Member Diagnosis Age At [...] Comments Tdap completed Source: New Immunization Record Rhophylac completed Source: New Immunization Record Payers Payer name Insurance type Covered republican ID Authorization(s) [facility] [id number] [employer] [place] [employer] - Medicaid [place] [id number] [facility] [id number] [employer] [place] [employer] - Medicaid [place] [id number] [facility] [id number] [employer] [place] [employer] - Medicaid [place] [id number] Social History Type Description Quantity Date Captured Alcohol Use Details No Caffeine Use Details Unknown Tobacco Use Status Unknown Smoking Status Never smoker Vital Signs Date / Height Weight BMI Pulse Blood Temperature Respiratory Body Head BMI Time: Rate Pressure Rate Surface Circumference percentile Area 174.00 31.3 110/70 2017 lbs 1 mm[Hg] 2:41 kg/m PM eter (2) Chief Complaint And Reason For Visit Unknown Chief Complaint And Reason For Visit Reason For Referral Reason For Referral Unknown Plan Of Care Date Type Action Status Goal Lifestyle education regarding completed diet Goal Lifestyle education regarding completed diet Appointment Laurie Palmer BOOKED Future Order: Radiology Order Ultrasound OB Follow-up ([id number]) Ordered Future Order: Radiology Order Complete OB Ultrasound > 14 Ordered Weeks ([id number]) Date Type Problem Goal Intervention Status Start [...]
--- OUTSIDE RECORDS SUMMARY | 2017-07-09 12:10 | External Medical Summary | Continuity of Care Document ---
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 700 Provider: Estephania BRADFORD, , third 7 Medical Jackie [address] [id number] [facility], gestation of Umesh Chamberlain, 120, Medical [place] [facility] [id number], [place], [place] 120, [place] [id number] Juan Pablo, tel: , [place]. [place], tel: [phone]. [phone] tel:[phone] Tatiana [place] Encounter for May-2 Jose Referring In Womens suprvsn of normal 4-201 Ar. 700 Provider: Estephania BRADFORD, , third 7 Medical Jackie PO Box trimesterEncounte [facility], 1522, r for U[place] Chamberlain, screening of 120, Medical [place], [email or web address] weeks [facility] , gestation of [place], [place] 120, [place] [id number] Juan Pablo, tel: , [place]. [place], tel: [phone]. [phone] tel:[phone] Tatiana [place] May-2 Jose In Womens 3-201 Ar. 700 [facility] SANCHEZ, Medical [address] [place] 1522, Umesh Chamberlain, 120, [place], Juan Pablo, [id number], [place], [place] [id number] tel: , [place]. tel: [phone] Tatiana [place] May-1 León In Womens 5-201 Nora. [facility] SANCHEZ, 7 700 [address] [place] [id number], [place], 120, [id number], [place], tel: [phone] , [place]. tel: [phone] Tatiana [place] 34 weeks May- Jose Referring In Womens gestation of 0-201 Dunreith. 700 Provider: Estephania BRADFORD, [facility] 7 Medical Jackie PO Box r for suprvsn of [facility], 1521, normal , U[place] Chamberlain, third trimester 120, Medical Juan Pablo [facility] [id number], [place], [place] 120, [place] [id number] Juan Pablo, tel: , [place]. [place], tel: [phone]. [phone] tel:[phone] Associates [facility] Pablo Oth diseases and Jose Referring In Womens Ultrasound conditions compl 0-201 Dunreith. 700 Provider: Estephania BRADFORD, preg/ 7 Medical Jackie PO Box weeks gestation [facility], 1521, of Umesh Chamberlainchita, 120, Medical [facility] [id number], [place], [place] 120, [place] [id number] Juan Pablo, tel: , [place]. [place], tel: [phone] tel:[phone] Tatiana [place] Oth diseases and Jose Referring In Womens conditions compl 7-201 Dunreith. 700 Provider: Estephania BRADFORD, preg/[id number] 7 Medical Jackie PO Box weeks gestation [facility], 1521, of Umesh [place]lain, [facility] 120, Medical [place], r for suprvsn of [facility] [id number], normal , [place], [place] 120, [place] third trimester [id number] Juan Pablo, tel: , [place]. [place], tel: [phone]. [phone] tel:[phone] Tatiana [place] Striking against Apr-0 León Referring In Womens unsp object w 5-201 Nora. Provider: Estephania BRADFORD, subsequent [facility] Jackie PO Box init [facility], 1521, encntrEncounter [address], for suprvsn of Umesh Chamberlain, normal , 120, Center [id number], third [id number] Juan Pablo, [place] 120, [place] weeks gestation Juan Pablo VIEIRA, tel:[phone] [place], , [place]. [id number]. tel: tel:[phone] Tatiana [place] Encounter for Jt-2 Lewis Referring In Womens suprvsn of normal 0-201 Jackie. Provider: Health SANCHEZ, , second 7 700 Jackie PO Box [id number] weeks Medical Lewis T, 1522, gestation of Center [address] [place] [address], Umesh Chamberlain, 120, [place] [id number], Juan Pablo [place] 120, [place] Juan Pablo VIEIRA, tel:[phone] [place], , [place]. [id number]. tel: tel:[phone] Tatiana [place] Encounter for Jt-0 Lewis Referring In Womens suprvsn of normal 9-201 Jackie. Provider: Estephania BRADFORD, , second 7 700 Jackie PO Box [id number] weeks Medical Lewis T, 1522, gestation of [address], Umesh Chamberlain, 120, Center [id number], Juan Pablo [place] 120, [place] Juan Pablo VIEIRA, tel:[phone] [place], , [place]. [id number]. tel: tel:[phone] Tatiana [place] Encounter for May-2 Lewis Referring In Womens suprvsn of normal 3-201 Jackie. Provider: Estephania BRADFORD, , second 7 700 Jackie PO Box weeks Medical Lewis T, 1522, gestation of Center [address] [place] [address], Umesh Chamberlain, 120, Center [id number], Juan Pablo [place] 120, [place] Juan Pablo VIEIRA, tel:[phone] [place], , [place]. [id number]. tel: tel:[phone] Tatiana [place] Acute May-1 Lewis Referring In Womens pharyngitis, 8-201 Jackie. Provider: Estephania BRADFORD, [email or web address] 7 700 Jackie PO Box weeks gestation Medical Lewis T, 1522, of Center [facility] [place], Umesh Chamberlain, 120, Center [id number], Juan Pablo [place] 120, [place] Juan Pablo VIEIRA, tel:[phone] [place], , [place]. [id number]. tel: tel:[phone] Tatiana [place] Oth May-0 Lewis Referring In Womens related 8-201 Jackie. Provider: Health SANCHEZ, conditions, 7 700 Jackie PO Box second Medical Lewis T, 1522, [id number] weeks Center [facility] [place], gestation of Umesh Chamberlain, 120, Center [id number], Juan Pablo [place] 120, [place] Juan Pablo VIEIRA, tel:[phone] [place], , [place]. [id number]. tel: tel:[phone] Tatiana [place] Oth Apr-2 Lewis Referring In Womens related 6-201 Jackie. Provider: Estephania BRADFORD, conditions, 7 700 Jackie PO Box second Medical Lewis T, 1522, trimesterEncounte Center [facility] [place], r for suprvsn of Umesh Chamberlain, normal , 120, Center [id number], second Umesh [place] 120, [place] [id number] weeks Juan Pablo VIEIRA, tel:+[phone] gestation of [phone] [place], , [place]. [id number]. tel: tel:[phone] Tatiana [place] Encounter for Apr-2 Lewis Referring In Womens Ultrasound suprvsn of normal 6-201 Jackie. Provider: Estephania BRADFORD, , second 7 700 Jackie PO Box [id number] weeks Medical Lewis T, 1522, gestation of Center [facility] [place], Umesh Chamberlain, 120, Center [id number], Juan Pablo [place] 120, [place] Juan Pablo VIEIRA, tel:[phone] [place], , [place]. [id number]. tel: tel:[phone] Tatiana [place] Ot Mar-3 Lewis Referring In Womens related 0-201 Jackie. Provider: Estephania BRADFORD, conditions, 7 700 Jackie PO Box second Medical Lewis T, 1522, weeks Center [facility] [place], gestation of Umesh Chamberlain, pregnancyEncounte 120, Center [id number], r for suprvsn of [place] [address], [place] normal , Juan Pablo VIEIRA, tel:[phone] second trimester [phone] [place], , [place]. [id number]. tel: tel:[phone] Associates [facility] Pablo Encntr screen for Nov-2 Lewis Referring In Womens infections w sexl 7-201 Jackie. Provider: Estephania BRADFORD, mode of 7 700 Jackie PO Box transmissEncounte Medical Lewis T, 1522, r for screening Center [address] [place] [address], for oth U[place] Chamberlain, infec/parastc 120, [place] , diseasesEncounter [place] [address], [place] for suprvsn of Juan Pablo VIEIRA, tel:[phone] normal , [phone] [place], first , [place]. [id number]. trimesterEncounte tel: tel:[phone] r for [phone] screening of [id number] weeks gestation of Associates Juan Pablo Irregular Menses Oct- Lewis Referring In Womens 0-201 Jackie. Provider: Estephania BRADFORD, 7 700 Jackie PO Box Medical Lewis T, 1522, Center [facility] Dr [place], 120, [place] [id number], [facility] 120, [place] Juan Pablo VIEIRA, tel:[phone] [place], , [place]. [id number]. tel: tel:[phone] [facility] Irregular Menses Oct-3 Lewis Referring In Womens Ultrasound 0-201 Jackie. Provider: Estephania BRADFORD, 7 700 Jackie PO Box Medical Lewis T, 1522, Center [facility] Dr Kevin Ste Medical [place], 120, Center [id number], [facility] 120, [place] Juan Pablo VIEIRA, tel:[phone] [place], , [place]. [id number]. tel: tel: [phone] Associates [facility] Vomiting of Lewis Referring In Womens , 9-201 Jackie. Provider: Estephania BRADFORD, unspecifiedIrregu 7 700 Jackie PO Box lar Menses Medical Lewis T, 1522, Center [facility] Dr [place], [facility] [place], 120, [place] , Juan Pablo [place] 120, [place], [place], tel: [phone] [place], , [place]. [id number]. tel: tel: [phone] [facility] MenorrhagiaIrregu Lewis Referring In Womens lar 2-201 Jackie. Provider: Estephania BRADFORD, MensesIrregular 7 700 Nora León PO Box Menses Medical [place], 700 1522, [place] [address], [facility] [place], 120, [place] 120, , Juan Pablo [place], [place], [place], tel: [phone]. , [place]. tel: tel: [phone] [facility] Vaginitis, Nov-0 Lewis In Womens AcutePelvic and -201 Jackie. Estephania BRADFORD, perineal pain 6 700 PO Box Medical 1522, [place] [address] [place], [place], 120, [id number], [place], [place], tel: [phone] , [place]. tel: [phone] [facility] Dysfunctional Aug-2 León In Womens Uterine 3-201 Nora. Estephania BRADFORD, BleedingEncounter 6 700 PO Box for initial Medical 1522, prescription of Elias Kevin contraceptive , [facility], pillsEncounter 120, , for surveillance [place] Juan Pablo of other [place], tel: contraceptivesEnc [phone] [facility] , . surveillance of tel: other [phone] contraceptives [facility] Right lower Apr-2 León In Womens quadrant pain 9-201 Nora. Estephania BRADFORD, 6 700 PO Box Medical 1522, [place] [address] [place], [facility], 120, , Juan Pablo [place], tel:+ [phone] , [place]. tel:[phone] [facility] Oth May-0 León In Womens noninflammatory 5-201 Nora. Health [place], disorders of 6 700 PO Box vulva and Medical 1522, perineum Center [place], Umesh Chamberlain, 120, , Juan Pablo [place], tel:+ [phone] , [place]. tel: [phone] [facility] Oth May-0 Jeanie In Womens noninflammatory 2-201 Rebecca. [facility], disorders of 6 700 PO Box vulva and Medical 1522, perineumEncntr [facility], screen for U[place], infections w sexl 120, , mode of transmiss Juan Pablo [place], tel:[phone] , [place]. tel: [phone] Tatiana [place] Dysfunctional Apr-0 León In Womens Uterine 8- Nora. Health SANCHEZ, BleedingEncounter 6 700 PO Box for surveillance Medical 1522, of other Center [place], contraceptives [place], 120, , Juan Pablo, [place], tel:[phone] , [place]. tel: [phone] [facility] Encounter for Dec-0 León In Womens test, 8- Nora. 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 tel: [phone] Tatiana [place] Caleb-2 Jeanie In Womens 2-201 Rebecca. Health SANCHEZ, 5 700 PO Box Medical 1522, [place], U[place], 120, , Juan [place], [place], tel:[phone] , [place]. tel: [phone] Tatiana [place] Apr-0 León In Womens 9-201 Nora. Health [place], 5 700 PO Box Medical 1522, [place] [address] [place], [place], 120, [id number], [facility] [place], tel:[phone] , . tel: [phone] Tatiana [place] Jeanie In Womens 8-201 Rebecca. [facility], 1 700 PO Box Medical 1522, [place] [address] [place], [place], 120, [id number], [facility] [place], tel:[phone] , [place]. tel: [phone] Family History Family Member Diagnosis Age At [...] Insurance type Covered constitution party ID Authorization(s) [facility] [id number] [employer] [place] [employer] - Medicaid [place] [id number] [facility] [id number] [employer] [place] [employer] [place] [id number] [facility] [id number] [employer] [place] [employer] [place] [id number] Social History Type Description Quantity Date Captured [...] Complete OB Ultrasound > 14 Ordered Weeks (59602) Future Order: Radiology Order Ultrasound OB Follow-up (04071) Ordered Date Type Problem Goal Intervention Status Start [...]
--- OUTSIDE RECORDS SUMMARY | 2017-07-09 12:11 | External Medical Summary ---
:1990 Author Organization [employer] Care Team Providers Name Role Phone Susy Aviles Provider Role Unavailable Allergies No Known Allergies Problems Problem Type Condition Code Onset Dates Condition Status Assessment Intractable migraine with aura with G43.111 Active status migrainosus Medications Medication Code Code Instructions Start End Status Dosage System Date Date Promethazine HCl NDC 16953-06 12.5 MG Orally Jun 30, Jul 30, 1 tablet 40-01 Daily PRN 2015 2015 migraine Flonase NDC 04290-30 50 MCG/ACT April 22, 1 spray in 53-01 Nasally each 2012 each nostril nostril BId Imitrex NDC 10599-20 25 MG Orally Jun 30, One at 35-00 Once/week prn 2015 beginning of migraine, may repeat in two hours Flexeril NDC 60699-29 5 MG Orally Jul 01Jun 30 tablet 95-30 Twice every day 2015 09, as needed 2015 Multivitamins NDC 77458-74 Orally as directed 46-10 Procedures Procedure Coding System Code Date IH CMP CPT-4 54013 Jul 01, 2016 MAGNESIUM CPT-4 78150 Jul 01, 2016 COMPLETE CBC W/AUTO DIFF WBC CPT-4 82941 Jul 01, 2016 TEST, IN HOUSE CPT-4 14837 Jul 01, 2016 Results No Known Results Summary Purpose [employer] Submission
--- OUTSIDE RECORDS SUMMARY | 2017-07-09 12:11 | External Medical Summary | Continuity of Care Document ---
:1990 Author Organization [facility] Address [address] [place], [place] [id number] Phone Support Name Relationship Address Phone Dulce Palmer parent [address] [phone] [place] [address] Allergies, Adverse Reactions, Alerts Substance Reaction Severity [...] third trimester 32 weeks gestation of - Oth related conditions, - second trimester 15 weeks gestation of - Encounter for suprvsn of normal - , second trimester Striking against unsp object w - subsequent fall, init encntr Encounter for suprvsn of normal - , third trimester 29 weeks gestation of - Acute pharyngitis, unspecified [...] - Oth related conditions, - second trimester 19 weeks gestation of - Encounter for suprvsn of normal - , second trimester Oth diseases and conditions compl - preg/chldbrth 34 weeks gestation of - Right lower quadrant pain Encntr for managing partner exam (general) - (routine) w/o abn findings Encounter for test, result - negative Pap Smear Screening, Cervix Encntr screen for infections w sexl - mode of transmiss Encounter for screening for oth - infec/parastc diseases Encounter for screening of - mother 10 weeks gestation of - Encounter for suprvsn of normal - , first trimester Encounter for suprvsn of normal - , second trimester 19 weeks gestation of - 22 weeks gestation of - Encounter for suprvsn of normal - , second trimester Encounter for suprvsn of normal - , second trimester 25 weeks gestation of - 26 weeks gestation of - Encounter for suprvsn of normal - , second trimester Encounter for suprvsn of normal [...] Referring In Womens suprvsn of normal 0-201 [place]. 700 Provider: Estephania BRADFORD, , third 7 Medical Jackie [address] [email or web address] weeks Center [facility], 152, gestation of Umesh Chamberlain, 120, Medical DARIEL [facility] , [place], Umesh 120, [place] [id number] Juan Pablo, tel: , [place]. [place], tel: [phone] tel:[phone] Associates [facility] Oth diseases and Jose Referring In Womens Ultrasound conditions compl 0-201 [place]. 700 Provider: Estephania BRADFORD, preg/irmoblwb76 7 Medical Jackie PO Box weeks gestation [facility], 1521, of Umesh Chamberlain [facility] [place], 120, Medical Juan Pablo [facility] [id number], [place], [place] 120, [place] [id number] Juan Pablo, tel: , [place]. [place], tel: [phone]. [phone] tel:[phone] Tatiana [place] Oth diseases and Jose Referring In Womens conditions compl 7-201 [facility] 700 Provider: Estephania BRADFORD, preg/césarrthEnco 7 Medical Jackie PO Box unter for suprvsn [facility], 1521, of normal Umesh Chamberlain, , third 120, Medical DARIEL, [id number] [place] [address] [id number], gestation of [place], [place] 120, [place] [id number] Juan Pablo, tel: , [place], tel: [phone]. [phone] tel:[phone] Tatiana [place] Striking against Caleb-0 León Referring In Womens unsp object w 5-201 Nora. Provider: Estephania BRADFORD, subsequent [facility] Jackie PO Box init [facility], 152, encntrEncounter [address], for suprvsn of Umesh Chamberlain, normal , 120, Center [id number], third [email or web address] Juan Pablo [facility] 120, [place] weeks gestation Juan Pablo VIEIRA, tel:+ [phone] [place], , [place]. [id number]. tel: tel:[phone] Tatiana [place] 26 weeks Jt-2 Lewis Referring In Womens gestation of 0-201 Jackie. Provider: Estephania BRADFORD, pregnancy[facility] 7 700 Jackie PO Box r for suprvsn of Medical Lewis T, 152, normal , Center [address] [place] [address], second trimester , [facility], 120, Center [id number], Juan Pablo, [facility] 120, [place] Juan Pablo VIEIRA, tel:[phone] [place], , [place]. [id number]. tel: tel:[phone] Tatiana [place] Encounter for Jt-0 Lewis Referring In Womens suprvsn of normal 9-201 Jackie. Provider: Estephania BRADFORD, , second 7 700 Jackie PO Box [id number] weeks Medical Lewis T, 152, gestation of Center [address] [place] [address], , [facility], 120, Center [id number], [facility] 120, [place] Juan Pablo VIEIRA, tel:[phone] [place], , [place]. [id number]. tel: tel:[phone] Tatiana [place] 22 weeks May-2 Lewis Referring In Womens gestation of 3-201 Jackie. Provider: Estephania BRADFORD, [facility] 7 700 Jackie PO Box r for suprvsn of Medical Lewis T, 152, normal , Center [address] [place], [place] [id number], second trimester , [facility], 120, Center [id number], Juan Pablo, [facility] 120, [place] Juan Pablo VIEIRA, tel: [phone] [place], , [place]. [id number]. tel: tel:[phone] Tatiana [place] Acute May-1 Lewis Referring In Womens pharyngitis, 8-201 Jackie. Provider: Estephania BRADFORD, [email or web address] 7 700 Jackie PO Box weeks gestation Medical Lewis T, 1522, of Center [facility] [place], Umesh Chamberlain, 120, Center [id number], Juan Pablo [facility] 120, [place] Juan Pablo VIEIRA, tel:[phone] [place], , [place]. [id number]. tel: tel:[phone] Tatiana [place] Ot May-0 Lewis Referring In Womens related 8-201 Jackie. Provider: Health PA, conditions, 7 700 Jackie PO Box second Medical Lewis T, 1522, [id number] weeks Center 700 [facility] [place], gestation of Umesh Chamberlain, 120, Center [id number], [facility] 120, [place] Juan Pablo VIEIRA, tel:[phone] DARIEL, , [place]. [id number]. tel: tel:[phone] Tatiana [place] Ot Apr-2 Lewis Referring In Womens related 6-201 Jackie. Provider: Health SANCHEZ, conditions, 7 700 Jackie PO Box second Medical Lewis T, 1522, [id number] weeks Center [address] [place] [address], gestation of Umesh Chamberlain, pregnancyEncounte 120, Center [id number], r for suprvsn of [facility] 120, [place] normal , Juan Pablo VIEIRA, tel:+ second trimester [phone] [place], , [place]. [id number]. tel: tel:[phone] Tatiana [place] Encounter for Apr-2 Lewis Referring In Womens Ultrasound suprvsn of normal 6-201 Jackie. Provider: Health PA, , second 7 700 Jackie PO Box [email or web address] weeks Medical Lewis T, 1522, gestation of Center 700 [facility] [place], Umesh Chamberlain, 120, Center [id number], [facility] 120, [place] Juan Pablo VIEIRA, tel:[phone] D[place], , [place]. [id number]. tel: tel:[phone] Tatiana [place] Ot Mar-3 Lewis Referring In Womens related 0-201 Jackie. Provider: Health SANCHEZ, conditions, 7 700 Jackie PO Box second Medical Lewis T, 1522, [email or web address] weeks Center [address] [place] [address], gestation of , Umesh VIEIRA, pregnancyEncounte 120, Center [id number], r for suprvsn of [facility] 120, [place] normal , Juan Pablo VIEIRA, tel:[phone] second trimester [phone] [place], , [place]. [id number]. tel: tel:[phone] [facility] Encntr screen for Feb-2 Lewis Referring In Womens infections w sexl 7-201 Jackie. Provider: Health SANCHEZ, mode of 7 700 Jackie PO Box [facility] Lewis T, 1522, r for screening Center [address] [place] [address], for oth , [facility] Lauren VIEIRA, infec/parastc 120, Center [id number], diseasesEncst [facility] cent[facility] Services 120, [place] for Juan Pablo VIEIRA, tel:2 screening of [phone] [place], [email or web address] weeks , [place]. [id number]. gestation of tel: tel: pregnancyEncpromed[facility] [phone] r for suprvsn of normal , first trimester [facility] Irregular Menses Oct-3 Lewis Referring In Womens 0-201 Jackie. Provider: Estephania BRADFORD, 7 700 Jackie PO Box Medical Lewis T, 1522, Center [facility] Dr [place], [facility], 120, [place] [id number], Juan Pablo [facility] 120, [place] Juan Pablo VIEIRA, tel: [phone] [place], , [place]. [id number]. tel: tel:[phone] Tatiana [place] Irregular Menses Oct-3 Lewis Referring In Womens Ultrasound 0-201 Jackie. Provider: Estephania BRADFORD, 7 700 Jackie PO Box Medical Lewis T, 1522, Center [facility] Dr [place], [facility], 120, Center [id number], [facility] Services 120, [place] Juan Pablo VIEIRA, tel:[phone] [place], , [place]. [id number]. tel: tel:[phone] [facility] Irregular Oct- Lewis Referring In Womens MensesVomiting of 9-201 Jackie. Provider: Estephania BRADFORD, , 7 700 Jackie PO Box unspecified Medical Lewis T, 1522, Center [address], [facility] [place], 120, [place] , Juan Pablo [facility] 120, [place], Juan Pablo, tel: [phone] [place], , [place]. [id number]. tel: tel: [phone] [facility] MenorrhagiaIrregu Lewis Referring In Womens lar 2-201 Jackie. Provider: Estephania BRADFORD, MensesIrregular 7 700 Nora León PO Box [facility] Medical K, 700 1522, [place] [address], [facility] [place], 120, [facility] 120, , Juan Pablo [place], [facility], [place], tel: [phone]. , [place]. tel: tel: [phone] [facility] Vaginitis, Aug- Lewis In Womens AcutePelvic and 201 Jackie. Estephania BRADFORD, perineal pain 6 700 PO Box Medical 1522, [place] [address], [facility], 120, , [place], [place], tel:[phone] , [place]. tel: [phone] Tatiana [place] Dysfunctional Aug-2 León In Womens Uterine 3-201 Nora. Health SANCHEZ, BleedingEncounter 6 700 PO Box for initial Medical 1522, prescription of Elias Kevin, contraceptive , [facility], pillsEncounter 120, , for surveillance [place] of other [place], tel: contraceptivesEnc [phone] ounter [facility] , [place]. surveillance of tel: other [phone] contraceptives [facility] Right lower Apr-2 León In Womens quadrant pain 9-201 Nora. Estephania BRADFORD, 6 700 PO Box Medical 1522, [place] [address], [facility] [place], 120, [id number], [place], [place], tel: [phone] , [place]. tel: [phone] Tatiana [place] Oth May-0 León In Womens noninflammatory 5-201 Nora. Health SANCHEZ, disorders of 6 700 PO Box vulva and Medical 1522, perineum Center Dr [address] [place], 120, , Juan Pablo [place], tel:[phone] , [place]. tel: [phone] [facility] Oth May-0 Jeanie In Womens noninflammatory 2-201 Rebecca. Health SANCHEZ, disorders of 6 700 PO Box vulva and Medical 1522, perineumEncntr [facility], screen for Umesh Chamberlain, infections w sexl 120, , mode of transmiss [place], tel:[phone] , [place]. tel: [phone] [facility] Dysfunctional Apr-0 León In Womens Uterine 8-201 Nora. Estephania BRADFORD, BleedingEncounter 6 700 PO Box for surveillance Medical 1522, of other [facility], contraceptives [place], 120, , Juan Pablo [place], tel:[phone] , [place]. tel: [phone] [facility] Encntr for managing partner Dec-0 León In Womens exam (general) 8- Nora. Health SANCHEZ, (routine) w/o abn 5 700 PO Box findingsEncounter Medical 1522, for [facility], test, result Umesh Chamberlain, negativePap Smear 120, , Screening, Cervix Juan [place], tel:[phone] , [place]. tel: [phone] Tatiana [place] Caleb-2 Jeanie In Womens 2-201 Rebecca. Estephania BRADFORD, 5 700 PO Box Medical 1522, [place] [address] [place], 120, , Juan Pablo [place], tel:[phone] , [place]. tel: [phone] Tatiana [place] Apr-0 León In Womens 9-201 Nora. Estephania BRADFORD, 5 700 PO Box Medical 1522, [place] [address] [place], 120, [id number], [facility] [place], tel:[phone] , [place]. tel: [phone] Tatiana [place] Jeanie In Womens 8-201 Rebecca. Replaced by [facility], 1 700 PO [facility] 1522, [place] [address] [place], Umesh VIEIRA, 120, [id number], [facility] [place], tel:[phone] , [place]. tel: [phone] Family History Family Member Diagnosis Age At [...] Insurance type Covered green party ID Authorization(s) [facility] [id number] [employer] [place] [employer] - Medicaid [place] [id number] [facility] [id number] [employer] [place] [employer] - Medicaid [place] [id number] Social History Type Description Quantity Date Captured Alcohol Use Details No Caffeine Use Details Unknown Tobacco Use Status Never smoked tobacco Smoking Status Never smoker Vital Signs Date / Height Weight BMI Pulse Blood Temperature Respiratory Body Head BMI Time: Rate Pressure Rate Surface Circumference percentile Area 171.00 30.7 120/ lbs 7 mm[Hg] 2:24 kg/m PM eter (2) Chief Complaint And Reason For Visit Unknown Chief Complaint And Reason For Visit Reason For Referral Reason For Referral Unknown Plan Of Care Date Type Action Status Goal Lifestyle education regarding completed diet Goal Lifestyle education regarding completed diet Appointment Laurie Palmer BOOKED Future Order: Radiology Order Ultrasound OB Follow-up ([id number]) Ordered Future Order: Radiology Order Complete OB Ultrasound > 14 Ordered Weeks ([id number]) Date Type Problem Goal Intervention Status Start [...]
--- OUTSIDE RECORDS SUMMARY | 2017-07-09 12:11 | External Medical Summary ---
:1990 Author Organization [employer] Care Team Providers Name Role Phone Eris Crow Provider Role Unavailable Allergies, Adverse Reactions, Alerts Substance Reaction Event Type Penicillin Info Not Available Drug Allergy Keflex Info Not Available Drug Allergy steroids vomiting Non Drug Allergy Problems Problem Type Condition Code Onset Dates Condition Status Assessment Encounter for dental examination and Z01.20 Active cleaning without abnormal findings Medications Medication Code System Code Instructions Start End [place] D[place] [address]-99 [place] [address]-69 50 MCG/ACT April 22 spray in 53-01 Nasally each 2012 each [place] [address]-30 Orally as directed 46-10 Procedures Procedure Coding System Code Date COMP ORAL EVALUATION - NEW/EST PT CPT-4 D0150 April 11, 2016 BITEWINGS - FOUR FILMS CPT-4 D0274 April 11, 2016 Results No Known Results Summary Purpose [employer] Submission
--- OUTSIDE RECORDS SUMMARY | 2017-07-09 12:11 | External Medical Summary | Continuity of Care Document ---
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 700 Provider: Estephania BRADFORD, , third 7 Medical Jackie [address] [id number] weeks Center [facility], 1522, gestation of Umesh Chamberlain, 120, Medical DARIEL [facility] [id number], [place], U[place] 120, [place] [id number] Juan Pablo, tel: , [place]. [place], tel: [phone] tel:[phone] Tatiana [place] Oth diseases and Jose Referring In Womens Ultrasound conditions compl 0-201 [place]. 700 Provider: Estephania BRADFORD preg/[id number] 7 Medical Jackie PO Box weeks gestation Center Lewis , 152, of Umesh Chamberlain, 120, Medical DARIEL [facility] [id number], [place], U[place] 120, [place] [id number] Juan Pablo, tel: , [place]. [place], tel: [phone] tel:[phone] Tatiana [place] May-0 Jose Referring In Womens 1-201 [place]. 700 Provider: Estephania BRADFORD, 7 Medical Jackie PO Box [place] , 1521, Umesh Chamberlainchita, 120, Medical DARIEL [facility] [id number], [place], [place] 120, [place] [id number] Juan Pablo, tel: , [place], tel: [phone] tel:[phone] Tatiana [place] Oth diseases and Jose Referring In Womens conditions compl 7-201 [place]. 700 Provider: Estephania BRADFORD, preg/chldbrthEnco 7 Medical Jackie PO Box unter for suprvsn Center [facility], 1521, of normal [place] Chamberlain, , third 120, Medical [place], [email or web address] weeks [facility] [id number], gestation of [place], [place] 120, [place] [id number] Juan Pablo, tel: , [place]. [place], tel: [phone] tel:[phone] Tatiana [place] Striking against Caleb-0 León Referring In Womens unsp object w 5-201 Nora. Provider: Estephania BRADFORD, subsequent fall, 7 700 Jackie PO Box init Medical Lewis T, 152, encntrEncounter Center [address] [place] [address], for suprvsn of Umesh Chamberlain, normal , 120, Center [id number], third Juan Pablo [facility] 120, [place] weeks gestation Juan Pablo VIEIRA, tel: of [phone] [place], , [place]. [id number]. tel: tel:[phone] [facility] Encounter for Jt-2 Lewis Referring In Womens suprvsn of normal 0-201 Jackie. Provider: Estephania BRADFORD, , second 7 700 Jackie PO Box [email or web address] weeks Medical Lewis T, 152, gestation of Center [address] [place] [address], Umesh Chamberlain, 120, Center [id number], Juan Pablo [facility] 120, [place] Juan Pablo VIEIRA, tel:[phone] [place], , [place]. [id number]. tel: tel:[phone] [facility] Encounter for Jt-0 Lewis Referring In Womens suprvsn of normal 9-201 Jackie. Provider: Estephania BRADFORD, , second 7 700 Jackie PO Box [id number] weeks Medical Lewis T, 152, gestation of Center [address] [place] [address], Umesh Chamberlain, 120, Center [id number], Juan Pablo [facility] 120, [place] Juan Pablo VIEIRA, tel:[phone] [place], , [place]. [id number]. tel: tel:[phone] [facility] Encounter for May-2 Lewis Referring In Womens suprvsn of normal 3-201 Jackie. Provider: Estephania BRADFORD, , second 7 700 Jackie PO Box [email or web address] weeks Medical Lewis T, 1522, gestation of Center [address] [place] [address], Umesh Chamberlain, 120, Center [id number], Juan Pablo [facility] 120, [place] Juan Pablo VIEIRA, tel:[phone] [facility] , [place]. [id number]. tel: tel:[phone] Tatiana [place] Acute May-1 Lewis Referring In Womens pharyngitis, 8-201 Jackie. Provider: Health SANCHEZ, [id number] 7 700 Jackie PO Box weeks gestation Medical Lewis T, 1522, of Center 700 [place], , Umesh Aguilar [place], 120, Center [id number], Juan Pablo [facility] 120, [place] Juan Pablo VIEIRA, tel:[phone] [place], , [place]. [id number]. tel: tel:[phone] [facility] Oth May-0 Lewis Referring In Womens related 8-201 Jackie. Provider: Health SANCHEZ, conditions, 7 700 Jackie PO Box second Medical Lewis T, 1522, [email or web address] weeks Center 700 [place], gestation of Umesh Chamberlain, 120, Center [id number], Juan Pablo [facility] 120, [place] Juan Pablo VIEIRA, tel:[phone] [place], , [place]. [id number]. tel: tel:[phone] Tatiana [place] Oth Apr-2 Lewis Referring In Womens related 6-201 Jackie. Provider: Estephania BRADFORD, conditions, 7 700 Jackie PO Box second Medical Lewis T, 1522, trimesterEncounte Center [facility] [place], r for suprvsn of Umesh Chamberlain, normal , 120, Center [id number], second Umesh [place] 120, [place] weeks Juan Pablo VIEIRA, tel: gestation of [phone] [place], , [place]. [id number]. tel: tel:[phone] Tatiana [place] Encounter for Apr-2 Lewis Referring In Womens Ultrasound suprvsn of normal 6-201 Jackie. Provider: Health SANCHEZ, , second 7 700 Jackie PO Box [email or web address] weeks Medical Lewis T, 1522, gestation of Center [facility] [place], Umesh Chamberlain, 120, Center [id number], Umesh [place] 120, [place] Juan Pablo VIEIRA tel:+ [phone] [place], , [place]. [id number]. tel: tel:[phone] [facility] Oth Mar-3 Lewis Referring In Womens related 0-201 Jackie. Provider: Estephania BRADFORD, conditions, 7 700 Jackie PO Box second Medical Lewis T, 152, trimesterEncounte Center [address] [place] [address], r for suprvsn of Umesh Chamberlain, normal , 120, Center [id number], [facility] Juan Pablo, [facility] 120, [place] weeks Juan Pablo VIEIRA, tel:[phone] gestation of [phone] [place], , [place]. [id number]. tel: tel:[phone] [facility] Encntr screen for b- Lewis Referring In Womens infections w sexl 7-201 Jackie. Provider: Estephania BRADFORD, mode of 7 700 Jackie PO Box transmissEncounte Medical Lewis T, 152, r for screening Center [address] [place] [address], for oth Umesh Chamberlain, infec/parastc 120, Center [id number], [facility], [place] for suprvsn of Juan Pablo VIEIRA, tel:[phone] normal , [phone] [place], first , [place]. [id number]. trimesterEncounte tel: tel:[phone] r for [phone] screening of [id number] weeks gestation of Associates Juan Pablo Irregular Menses Oct- Lewis Referring In Womens 0-201 Jackie. Provider: Estephania BRADFORD, 7 700 Jackie PO Box Medical Lewis T, 1522, Center [facility] Dr Kevin Ste Medical [place], 120, Center [id number], Juan Pablo [facility] 120, [place] Juan Pablo VIEIRA, tel:[phone] [place], , [place]. [id number]. tel: tel:[phone] [facility] Irregular Menses Lewis Referring In Womens Ultrasound 0-201 Jackie. Provider: Estephania BRADFORD, 7 700 Jackie PO Box Medical Lewis T, 1522, Center [facility] [address] [place], [facility] [place], 120, [place] [id number], Juan Pablo, [facility] 120, Juan Pablo VIEIRA, tel: [phone] DARIEL, , . [id number]. tel: tel: [phone] [facility] Irregular Lewis Referring In Womens MensesVomiting of 9-201 Jackie. Provider: Estephania BRADFORD, , 7 700 Jackie PO Box unspecified Medical Lewis T, 1522, Center [facility] [address] [place], [facility] [place], 120, [place] [id number], Juan Pablo, [facility] 120, Juan Pablo VIEIRA, tel: [phone] [place], , [place]. [id number]. tel: tel: [phone] [facility] MenorrhagiaIrregu Lewis Referring In Womens lar 2-201 Jackie. Provider: Estephania BRADFORD, MensesIrregular 7 700 Nora León PO Box Menses Medical [place], 700 1522, [place] [address], [facility] [place], 120, [facility] 120, , Juan Pablo [place], DARIEL, DARIEL, tel: [phone]. , [place]. tel: tel: [phone] [facility] Vaginitis, Nov-0 Lewis In Womens AcutePelvic and 201 Jackie. Estephania BRADFORD, perineal pain 6 700 PO Box Medical 1522, [place] [address] [place], [facility] [place], 120, [id number], Juan Pablo, [place] VIEIRA, tel: [phone] , [place]. tel: [phone] [facility] Dysfunctional May-2 León In Womens Uterine 3-201 Nora. Estephania BRADFORD, BleedingEncounter 6 700 PO Box for initial Medical 1522, prescription of Elias Kevin contraceptive , [facility], pillsEncounter 120, , for surveillance [place] Juan Pablo of other [place], tel: contraceptivesEnc [phone] [facility] , [place]. surveillance of tel:[phone] contraceptives Associates [facility] Pablo Right lower Apr-2 León In Womens quadrant pain - Nora. Health SANCHEZ, 6 700 PO Box Medical 15[address], [place] [address] [place], 120, , [place], tel:[phone] , [place]. tel: [phone] [facility] Oth May-0 León In Womens noninflammatory - Nora. Health [place], disorders of 6 700 PO Box vulva and Medical 1522, perineum [address] Dr [address] [place], 120, , [place], [place], tel:+ [phone] , [place]. tel: [phone] [facility] Oth May-0 Jeanie In Womens noninflammatory - Rebecca. Health SANCHEZ, disorders of 6 700 PO Box vulva and Medical 1522, perineumEncntr [facility], screen for U[place] Chamberlain, infections w sexl 120, , mode of transmiss [place], tel:+ [phone] , [place]. tel: [phone] [facility] Dysfunctional Apr-0 León In Womens Uterine - Nora. Health SANCHEZ, BleedingEncounter 6 700 PO Box for surveillance Medical 1522, of other Center [place], contraceptives Umesh Chamberlain, 120, , [place], [place], tel:+ [phone] , [place]. 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 Health SANCHEZ, (routine) w/o abn 5 700 PO Box findingsPap Smear Medical 1522, Screening, [facility], CervixEncounter Umesh Chamberlain, for 120, , test, result Juan Pablo negative [place], tel:[phone] , [place]. tel: [phone] Tatiana [place] Apr-2 Jeanie In Womens 2-201 Rebecca. Health SANCHEZ, 5 700 PO [place] Medical 15[address], [place] [address] [place], [facility] [place], 120, [id number], [facility] [place], tel:[phone] , [place]. tel: [phone] [facility] Jan- León In Womens 9-201 Nora. Health [place], 5 700 PO Box Medical 1522, [place] [address] [place], [place], 120, [id number], [facility] [place], tel:[phone] , [place]. tel: [phone] Tatiana [place] Apr- Jeanie In Womens 8-201 Rebecca. Health [place], 1 700 PO Box Medical 1522, [place] [address] [place], [facility] [place], 120, [id number], [facility] [place], tel:[phone] , [place]. tel: [phone] Family History Family Member Diagnosis Age At [...] Insurance type Covered constitution party ID Authorization(s) [facility] [id number] [employer] [place] [employer] - Medicaid [place] [id number] [facility] [id number] [employer] [place] [employer] - Medicaid [place] [id number] Social History Type Description Quantity Date Captured Alcohol Use Details No Caffeine Use Details Unknown Tobacco Use Status Unknown Smoking Status Never smoker Vital Signs Date / Height Weight BMI Pulse Blood Temperature Respiratory Body Head BMI Time: Rate Pressure Rate Surface Circumference percentile Area 1 8:27 kg/m AM eter (2) Chief Complaint And Reason For Visit Unknown Chief Complaint And Reason For Visit Reason For Referral Reason For Referral Unknown Plan Of Care Date Type Action Status Goal Lifestyle education regarding completed diet Goal Lifestyle education regarding completed diet Appointment Laurie Palmer BOOKED Future Order: Radiology Order Ultrasound OB Follow-up ([id number]) Ordered Future Order: Radiology Order Complete OB Ultrasound > 14 Ordered Weeks ([id number]) Date Type Problem Goal Intervention Status Start [...]
--- OUTSIDE RECORDS SUMMARY | 2017-07-09 12:11 | External Medical Summary | Continuity of Care Document ---
:1990 Author Organization [facility] [employer] [facility] Address [address] [place], [place] [id number] Phone Support Name Relationship Address Phone Dulce Palmer parent [address] [phone] [place] [address] Allergies, Adverse Reactions, Alerts Substance Reaction Severity [...] third trimester 32 weeks gestation of - 36 weeks gestation of - Encounter for suprvsn of normal - , third trimester Encounter for screening of - mother Acute pharyngitis, unspecified - 22 weeks gestation of - Vaginitis, Acute Pelvic and perineal pain Oth noninflammatory disorders of vulva and perineum Oth noninflammatory disorders of vulva and perineum Encntr screen for infections w sexl mode of transmiss Dysfunctional Uterine Bleeding Encounter for surveillance of other contraceptives Dysfunctional Uterine Bleeding Encounter for initial prescription of contraceptive pills Encounter for surveillance of other contraceptives Encounter for surveillance of other - contraceptives Menorrhagia Irregular Menses Irregular Menses Irregular Menses Vomiting of , unspecified Irregular Menses - Irregular Menses Encntr for adolescent specialist exam (general) - (routine) w/o abn findings Pap Smear Screening, Cervix Encounter for test, result - negative Right lower quadrant pain Encntr screen for infections w sexl - mode of transmiss Encounter for screening for oth - infec/parastc diseases Encounter for suprvsn of normal - , first trimester Encounter for screening of - mother 10 weeks gestation of - Oth related conditions, [...] third trimester 34 weeks gestation of - 37 weeks gestation of - Encounter for suprvsn of normal - , third trimester Active Procedures Procedure Date Unknown Results Test Name Date and Time Measure Units Reference Range Abnormal Flag Comments Unknown Advance Directives Directive Yes / No Effective Date File Name Unknown Encounters Encounter Practice Location Reason(s) Diagnoses Date Provider Care Team Description For Visit Members Tatiana [place] 37 weeks May-3 Jose Referring In Womens gestation of - Ar. 700 Provider: Siddharth Mayorga Medical Jackie PO Box r for suprvsn of [facility], 1522, normal , Umesh Chamberlain [place], third trimester 120, [facility] [id number], [place], [facility] 120, [place] [id number] Juan Pablo, tel: , [place], tel: [phone]. [phone] tel:[phone] Tatiana Al[place] 36 weeks May-2 Jose Referring In Womens gestation of - Ar. 700 Provider: Siddharth Mayorga Medical Jackie PO Box r for suprvsn of [facility], 1522, normal , Umesh Chamberlain [place], [facility] 120, Medical [facility] [id number], r for DARIEL [facility] 120, [place] screening of [id number] Juan Pablo, tel: mother , [place], tel: [phone]. [id number] tel:[phone] Tatiana [place] May-2 Jose In Womens 3-201 [place]. 700 Rosalia Mayorga Medical PO Box [place] 1522, Umesh Chamberlain, 120, Juan Pablo VIEIRA [id number], [place], [place] [id number] tel: , [place]. tel: [phone] Tatiana [place] May-1 Jose Referring In Womens 7-201 Ar. 700 Provider: Rosalia Mayorga [facility], 1522, Umesh Chamberlain, 120, Medical [facility] [id number], [place], [place] 120, [place] [id number] Juan Pablo, tel: , [place]. [place], tel: [phone]. [id number] tel:[phone] Tatiana [place] Encounter for May-1 Jose Referring In Womens suprvsn of normal 0-201 Ar. 700 Provider: Estephania BRADFORD, , third 7 [facility] [id number] weeks [facility], 1522, gestation of Umesh Chamberlain, 120, Medical [facility] [id number], [place], [place] 120, [place] [id number] Juan Pablo, tel: , [place]. [place], tel: [phone]. [id number] tel:[phone] Associates Juan Pablo Oth diseases and May- Jose Referring In Womens Ultrasound conditions compl 0-201 [place]. Mariana Provider: Estephania BRADFORD, preg/dchqrbym98 7 [facility] weeks gestation Center [facility], 1522, of Umesh Chamberlain, 120, Medical [facility] [id number], [place], [place] 120, [place] [id number] Juan Pablo, tel: , [place]. [place], tel: [phone]. [id number] tel:[phone] Tatiana [place] Oth diseases and Apr-2 Jose Referring In Womens conditions compl 7-201 Ar. 700 Provider: Estephania BRADFORD, preg/chldbrthEnco 7 [facility] unter for suprvsn [facility], 1522, of normal Umesh Chamberlain, , third 120, Medical DARIEL, [id number] weeks [facility] [id number], gestation of [place], [place] 120, [place] [id number] Juan Pablo, tel: , [place], tel: [phone]. [phone] tel:[phone] Tatiana Alme[place] Striking against Apr-0 León Referring In Womens unsp object w 5-201 Nora. Provider: Estephania BRADFORD, subsequent fall, 7 700 Jackie PO Box init Medical Lewis T, 1521, encntrEncounter Center [address] [place] [address], for suprvsn of Umesh Chamberlain, normal , 120, Center [id number], third [id number] [place], [facility] 120, [place] weeks gestation Juan Pablo VIEIRA, tel:+ [phone] [place], , [place]. [id number]. tel: tel:[phone] Tatiana [place] 26 weeks Jt-2 Lewis Referring In Womens gestation of 0-201 Jackie. Provider: Estephania BRADFORD, pregnancyEncounte 7 700 Jackie PO Box r for suprvsn of Medical Lewis T, 1521, normal , Center [address] [place] [address], second trimester Umesh Chamberlain, 120, Center [id number], Juan Pablo, [facility] 120, [place] Juan Pablo VIEIRA, tel:[phone] DARIEL, , [place]. [id number]. tel: tel:[phone] Tatiana [place] Encounter for Jt-0 Lewis Referring In Womens suprvsn of normal 9-201 Jackie. Provider: Estephania BRADFORD, , second 7 700 Jackie PO Box [id number] weeks Medical Lewis T, 152, gestation of Center [address] [place] [address], Umesh Chamberlain, 120, Center [id number], Juan Pablo, [facility] 120, [place] Juan Pablo VIEIRA, tel:[phone] DARIEL, , [place]. [id number]. tel: tel:[phone] Tatiana Almeida Encounter for February- Lewis Referring In Womens suprvsn of normal 3-201 Jackie. Provider: Estephania BRADFORD, , second 7 700 Jackie PO Box [id number] weeks Medical Lewis T, 152, gestation of Center [address] [place] [address], Umesh Chamberlain, 120, Center [id number], Juan Pablo, [facility] 120, [place] Juan Pablo VIEIRA, tel:[phone] DARIEL, , [place]. [id number]. tel: tel:[phone] Tatiana Almeida Acute May-1 Lewis Referring In Womens pharyngitis, 8-201 Jackie. Provider: Health [facility], [id number] 7 700 Jackie PO Box weeks gestation Medical Lewis T, 1522, of Center [facility] [place], Umesh Chamberlain, 120, Center [id number], Juan Pablo, [facility] 120, [place] Juan Pablo V[place], tel:[phone] [place], , [place]. [id number]. tel: tel:[phone] Tatiana [place] Oth May-0 Lewis Referring In Womens related 8-201 Jackie. Provider: Health SANCHEZ, conditions, 7 700 Jackie PO Box second Medical Lewis T, 1522, [id number] weeks Center [facility] [place], gestation of Umesh Chamberlain, 120, Center [id number], Juan Pablo, [facility] 120, [place] Juan Pablo VIEIR[place], tel:[phone] [place], , [place]. [id number]. tel: tel:[phone] Tatiana Al[place]ida Oth Apr-2 Lewis Referring In Womens related 6-201 Jackie. Provider: Estephania BRADFORD, conditions, 7 700 Jackie PO Box second Medical Lewis T, 1522, trimesterEncounte Center [address] [place] [address], for suprvsn of Umesh Chamberlain, normal , 120, Center [id number], second Juan Pablo [facility] 120, [place] [id number] weeks Juan Pablo VIEIRA, tel: gestation of [place], , [place]. [id number]. tel: tel:[phone] Tatiana Almeida Encounter for Apr-2 Lewis Referring In Womens Ultrasound suprvsn of normal 6-201 Jackie. Provider: Health SANCHEZ, , second 7 700 Jackie PO Box [id number] weeks Medical Lewis T, 1522, gestation of Center [address] [place], [place] [id number], Umesh Chamberlain, 120, Center [id number], Juan Pablo, [facility] 120, [place] Juan Pablo VIEIRA, tel:[phone] DARIEL, , [place]. [id number]. tel: tel:[phone] Associates Juan Pablo Oth Mar-3 Lewis Referring In Womens related 0-201 Jackie. Provider: Estephania BRADFORD, conditions, 7 700 Jackie PO Box second Medical Lewis T, 1522, [id number] weeks Center [facility] [place], gestation of Umesh Chamberlain, pregnancyEncounte 120, [place] [id number], r for suprvsn of [place] [address], normal , Juan Pablo VIEIRA, tel:[phone] second trimester [phone] [place], , [place]. [id number]. tel: tel:[phone] Associates uJan Pablo Encntr screen for Feb-2 Lewis Referring In Womens infections w sexl 7-201 Jackie. Provider: Estephania BRADFORD, mode of 7 700 Jackie PO Box transmissEncounte Medical Lewis T, 152, r for screening Center [address] [place] [address], for oth [facility] DARIEL, infec/parastc 120, [place] [id number], diseasesEncsan [facility] 120, [place] for suprvsn of Juan Pablo VIEIRA, tel:[phone] normal , [phone] [place], first , [place]. [id number]. trimesterEncounte tel: tel:[phone] r for [phone] screening of [id number] weeks gestation of Associates Juan Pablo Irregular Menses Oct- Lewis Referring In Womens 0-201 Jackie. Provider: Estephania BRADFORD, 7 700 Jackie PO Box Medical Lewis T, 152, Center [facility] Dr [place] [facility], 120, [place] [id number], [facility] 120, [place] Juan Pablo VIEIRA, tel: [phone] [place], , [place]. [id number]. tel: tel:[phone] Associates Juan Pablo Irregular Menses Oct- Lewis Referring In Womens Ultrasound 0-201 Jackie. Provider: Estephania BRADFORD, 7 700 Jackie PO Box Medical Lewis T, 1522, Center Mariana [address] [facility], 120, Alliance , Juan Pablo [facility] 120, [place] Juan Pablo VIEIRA, tel: [phone] [place], , [place]. [id number]. tel: tel: [phone] Associates Juan Pablo Irregular Lewis Referring In Womens MensesVomiting of 9-201 Jackie. Provider: Estephania BRADFORD, , 7 700 Jackie PO Box unspecified Medical Lewis T, 1522, Center [address], [facility], 120, [place] [id number], [facility] 120, Juan Pablo VIEIRA, tel: [phone] [place], , [place]. [id number]. tel: tel: [phone] Associates Juan Pablo MenorrhagiaIrregu Lewis Referring In Womens lar 2-201 Jackie. Provider: Estephania BRADFORD, MensesIrregular 7 700 Nora León PO Box Menses Medical K, 700 1522, [address], [facility] [place], 120, [facility] 120, , Juan Pablo [place], [facility], [place], tel: [phone]. , [place]. tel: tel: [phone] Associates Juan Pablo Vaginitis, Aug-0 Lewis In Womens AcutePelvic and 4-201 Jackie. Estephania BRADFORD, perineal pain 6 700 PO Box Medical 1522, [address] [place], [facility], 120, , [place], DARIEL, tel: [phone] , [place]. tel: [phone] Associates Juan Pablo Dysfunctional Aug-2 León In Womens Uterine 3-201 Nora. Health SANCHEZ, BleedingEncounter 6 700 PO Box for initial Medical 1522, prescription of Elias Kevin contraceptive , [facility], pillsEncounter 120, , for surveillance [place] Juan Pablo of other [place], tel: contraceptivesEnc [phone] [facility] , [place]. surveillance of tel: other [phone] contraceptives Associates Juan Pablo Right lower Apr-2 León In Womens quadrant pain 9- Nora. Health SANCHEZ, 6 700 PO Box Medical 1522, [address] [place], [place], 120, , Juan Pablo [place], tel:[phone] , [place]. tel:[phone] Associates Juan Pablo Oth May-0 León In Womens noninflammatory 5- Nora. Health SANCHEZ, disorders of 6 700 PO Box vulva and Medical 1522, perineum Center Dr Kevin [address] [place], 120, , [place], [place], tel:[phone] , [place]. tel:[phone] Associates Juan Pablo Oth May-0 Jeanie In Womens noninflammatory - Rebecca. Health SANCHEZ, disorders of 6 700 PO Box vulva and Medical 1522, perineumEncntr [facility], screen for U[place] Chamberlain, infections w sexl 120, , mode of transmiss [place] Juan Pablo [place], tel:[phone] , [place]. tel:[phone] Associates JuanP ablo Dysfunctional Apr-0 León In Womens Uterine - Nora. Health SANCHEZ, BleedingEncounter 6 700 PO Box for surveillance Medical 1522, of other [place], contraceptives Umesh Chamberlain, 120, , [place], [place], tel:+ [phone] , [place]. tel:[phone] Associates Juan Pablo Encntr for adolescent specialist Dec-0 León In Womens exam (general) 8- Nora. Health SANCHEZ, (routine) w/o abn 5 700 PO Box findingsPap Smear Medical 1522, Screening, [facility], CervixEnctraeer [place] Chamberlain, for 120, , test, result [place] Juan Pablo negative [place], tel:[phone] , [place]. tel:[phone] Associates Juan Pablo Caleb-2 Jeanie In Womens 2-201 Rebecca. Health SANCHEZ, 5 700 PO Box Medical 1522, [address] [place], 120, [id number], [facility] [place], tel:+ [phone] , [place]. tel: [phone] Associates Juan Pablo Jan- León In Womens 9-201 Nora. [facility], 5 700 [facility] Medical 1522, [address] [place], [facility] [place], 120, [id number], [facility] [place], tel: [phone] , [place]. tel: [phone] Tatiana Alme[place] Apr- Jeanie In Womens 8-201 Rebecca. [facility], 1 700 PO [place] [facility] 1522, [address] [place], [facility] [place], 120, [id number], [facility] [place], tel: [phone] , [place]. tel: [phone] Family History Family Member Diagnosis Age At [...] Comments Tdap completed Source: New Immunization Record [facility] completed Source: New Immunization Record Payers Payer name Insurance type Covered green party ID Authorization(s) [employer] [place] [employer] - Medicaid MC [id number] [facility] [id number] [employer] [place] [employer] - Medicaid [place] [id number] [facility] [id number] [employer] - Medicaid [place] [id number] Social History Type Description Quantity Date Captured [...] Future Order: Radiology Order Ultrasound OB Follow-up ([id number]) Ordered Future Order: Radiology Order Complete OB Ultrasound > 14 Ordered Weeks ([id number]) Date Type Problem Goal Intervention Status Start [...]
--- OUTSIDE RECORDS SUMMARY | 2017-07-09 12:11 | External Medical Summary ---
:1990 Author Organization [employer] Care Team Providers Name Role Phone Susy Aviles Provider Role Unavailable Allergies, Adverse Reactions, Alerts Substance Reaction Event Type Penicillin Info Not Available Drug Allergy Keflex Info Not Available Drug Allergy steroids vomiting Non Drug Allergy Problems Problem Type Condition Code Onset Dates Condition Status Assessment Muscle pain, cervical M54.2 Active Assessment Encounter for test, Z32.00 Active result unknown Assessment Intractable migraine with aura with G43.111 Active status migrainosus Medications Medication Code Code Instructions Start End Status Dosage System Date Date Imitrex NDC 89009-67 25 MG Orally Jun 30, One at 35-00 Once/week prn 2015 beginning of migraine, february repeat in two hours Flonase NDC 27984-19 50 MCG/ACT April 22, 1 spray in 53-01 Nasally each 2012 each nostril nostril BId Multivitamins NDC 08043-57 Orally as directed 46-10 Flexeril NDC 97597-64 5 MG Orally Jul 01Jun 30 tablet 95-30 Twice every day 2015 09, as needed 2015 Promethazine HCl NDC 91530-41 12.5 MG Orally Jun 30, Jul 30, 1 tablet 40-01 Daily PRN 2015 2015 migraine Procedures Procedure Coding System Code Date OFFICE VISIT, EST-LOW COMPLEXITY (15 MIN.) CPT-4 68340 Jul 01, 2016 TEST, IN HOUSE CPT-4 92576 Jul 01, 2016 Vital Signs Date/Time: Jul 01, 2016 Temperature 99.5 F Height 64 in Weight 160 lbs Blood Pressure Diastolic 84 mm Hg Blood Pressure Systolic 118 mm Hg Cardiac Monitoring Heart Rate 63 /min BMI 27.46 Index Oximetry 98 % Respiratory Rate 16 /min Results Name Result Date Reference Range Unit Abnormality Flag CT Scan : Head, without contrast Summary Purpose [employer] Submission
--- OUTSIDE RECORDS SUMMARY | 2017-07-09 12:11 | External Medical Summary | Continuity of Care Document ---
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 700 Provider: Estephania BRADFORD, , third 7 Medical Jackie [address] [email or web address] weeks Center [facility], 1522, gestation of Umesh Chamberlain, 120, Medical DARIEL [facility] [id number], [place], [place] 120, [place] [id number] [place], tel:+ , [place]. [place], tel: [phone] tel:[phone] Associates Juan Pablo Oth diseases and Jose Referring In Womens Ultrasound conditions compl 0-201 [place]. 700 Provider: Estephania BRADFORD, preg/[id number] 7 Medical Jackie PO Box weeks gestation [facility], 1522, of Umesh Chamberlainta, 120, Medical DARIEL [facility] [id number], [place], U[place] 120, [place] [id number] Juan Pablo, tel: , [place]. [place], tel:[phone]. [id number] tel:[phone] Tatiana [place] Caleb-3 León In Womens 1-201 Nora. Estephania BRADFORD, Rosalia Peña PO [facility] [address], Center [address] [place], [facility] [place], 120, [id number], [place], [facility], tel: [phone] , [place]. tel: [phone] Tatiana [place] Oth diseases and Apr-2 Jose Referring In Womens conditions compl 7-201 [place]. 700 Provider: Estephania BRADFORD, preg/chldbrthEnco 7 Medical Jackie PO Box unter for suprvsn [facility], 1522, of normal Umesh Chamberlain, , third 120, Medical [place], [email or web address] [facility] [id number] gestation of [place], [place] 120, [place] [id number] Juan Pablo, tel: , [place]. [place], tel: [phone]. [id number] tel:[phone] Tatiana [place] Striking against Caleb-0 León Referring In Womens unsp object w 5-201 Nora. Provider: Estephania BRADFORD, subsequent fall, 7 700 Jackie PO Box init Medical Lewis T, 1521, encntrEncounter Center [address] [place] [address], for suprvsn of Umesh Chamberlain, normal , 120, Center [id number], third [id number] [place], [facility] 120, [place] weeks gestation Juan Pablo VIEIRA, tel:[phone] of [phone] [place], , [place]. [id number]. tel: tel:[phone] Tatiana [place] 26 weeks Jt-2 Lewis Referring In Womens gestation of 0-201 Jackie. Provider: Estephania BRADFORD, pregnancyEncounte 7 700 Jackie PO Box r for suprvsn of [facility] T, 1521, normal , Center [address] [place] [address], second trimester U[place], 120, Center [id number], [facility], [place] Juan Pablo VIEIRA, tel:[phone] [place], , [place]. [id number]. tel: tel:[phone] Tatiana [place] Encounter for Jt-0 Lewis Referring In Womens suprvsn of normal 9-201 Jackie. Provider: Estephania BRADFORD, , second 7 700 Jackie PO Box [email or web address] weeks Medical Lewis T, 1521, gestation of Center [address] [place] [address], U[place], 120, Center [id number], [facility], [place] Juan Pablo VIEIRA, tel:[phone] DARIEL, , [place]. [id number]. tel: tel:[phone] Tatiana [place] 22 weeks February-2 Lewis Referring In Womens gestation of 3-201 Jackie. Provider: Estephania BRADFORD, pregnancyEncque[facility] 7 700 Jackie PO Box r for suprvsn of Medical Lewis T, 1521, normal , [address], second trimester U[place], 120, Center [id number], Juan Pablo, [facility] 120, [place] Juan Pablo VIEIRA, tel:[phone] [place], , [place]. [id number]. tel: tel:[phone] Tatiana [place] Acute May-1 Lewis Referring In Womens pharyngitis, 8-201 Jackie. Provider: Health PA, [email or web address] 7 700 Jackie PO Box weeks gestation Medical Lewis T, 1522, of Center [facility], Umesh Chamberlain, 120, Center [id number], [facility], [place] Juan Pablo VIEIRA, tel:[phone] [place], , [place]. [id number]. tel: tel:[phone] Tatiana [place] Oth May-0 Lewis Referring In Womens related 8-201 Jackie. Provider: Health PA, conditions, 7 700 Jackie PO Box second Medical Lewis T, 1522, weeks Center [address] [place] [address], gestation of Umesh Chamberlain, 120, Center [id number], [facility], [place] Juan Pablo VIEIRA, tel:[phone] [place], , [place]. [id number]. tel: tel:[phone] Tatiana [place] Oth Apr-2 Lewis Referring In Womens related 6-201 Jackie. Provider: Estephania PA, conditions, 7 700 Jackie PO Box second Medical Lewis T, 152, [id number] weeks Center [address] [place] [address], gestation of Umesh Chamberlain, pregnancyEncounte 120, [place] [id number], r for suprvsn of [facility] 120, [place] normal , Juan Pablo VIEIRA, tel: second trimester [phone] [place], , [place]. [id number]. tel: tel:[phone] Tatiana [place] Encounter for Apr-2 Lewis Referring In Womens Ultrasound suprvsn of normal 6-201 Jackie. Provider: Health PA, , second 7 700 Jackie PO Box [email or web address] weeks Medical Lewis T, 1522, gestation of Center [facility], Umesh Chamberlain, 120, Center [id number], [facility], [place] Juan Pablo VIEIRA, tel:[phone] [place], , [place]. [id number]. tel: tel:[phone] Associates Juan Pablo Oth Mar-3 Lewis Referring In Womens related 0-201 Jackie. Provider: Estephania BRADFORD, conditions, 7 700 Jackie PO Box second Medical Lewis T, 1522, [id number] weeks Center [facility], gestation of Dr [facility] Lauren VIEIRA, pregnancyEncounte 120, Center [id number], r for suprvsn of [place] [address], [place] normal , Juan Pablo VIEIRA, tel:[phone] second trimester [phone] [place], , [place]. [id number]. tel: tel:[phone] Associates Juan Pablo Encntr screen for Feb-2 Lewis Referring In Womens infections w sexl 7-201 Jacike. Provider: Estephania BRADFORD, mode of 7 700 Jackie PO Box transmissEncounte Medical Lewis T, 152, r for screening Center [address] [place] [address], for oth Dr [facility], infec/parastc 120, [place] [id number], diseasesEncounter [facility] 120, [place] for suprvsn of Juan Pablo VIEIRA, tel:[phone] normal , [id number] [place], first , [place]. [id number]. trimesterEncounte tel: tel:[phone] r for [phone] screening of [id number] weeks gestation of Associates Juan Pablo Irregular Menses Oct- Lewis Referring In Womens 0-201 Jackie. Provider: Estephania BRADFORD, 7 700 Jackie PO Box Medical Lewis T, 152, Center [facility] Dr [place], [facility], 120, [place] [id number], [facility] 120, [place] Juan Pablo VIEIRA, tel: [phone] [place], , [place]. [id number]. tel: tel:[phone] Associates Juan Pablo Irregular Menses Oct- Lewis Referring In Womens Ultrasound 0-201 Jackie. Provider: Estephania BRADFORD, 7 700 Jackie PO Box Medical Lewis T, 1522, Center [address], [facility], 120, [place] , Juan Pablo [facility] 120, [place] Juan Pablo VIEIRA, tel: [phone] [place], , . [id number]. tel: tel: [phone] Associates Juan Pablo Irregular Lewis Referring In Womens MensesVomiting of 9-201 Jackie. Provider: Health SANCHEZ, , 7 700 Jackie PO Box unspecified Medical Lewis T, 1522, Center [facility] [address] [place], [facility] [place], 120, [place] [id number], Juan Pablo, [facility] 120, Juan Pablo VIEIRA, tel: [phone] [place], , . [id number]. tel: tel: [phone] Associates Juan Pablo MenorrhagiaIrregu Lewis Referring In Womens lar 2-201 Jackie. Provider: Estephania BRADFORD, MensesIrregular 7 700 Nora León PO Box [facility] Medical K, 700 1522, [place] [address], [facility] [place], 120, [facility] 120, [id number], Juan Pablo [place], [facility], [place], tel: [phone]. , [place]. tel: tel: [phone] Associates Juan Pablo Vaginitis, Nov-0 Lewis In Womens AcutePelvic and 4-201 Jackie. Estephania BRADFORD, perineal pain 6 700 PO Box Medical 1522, [place] [address] [place], [facility] DARIEL, 120, [id number], [place], DARIEL, tel: [phone] , [place]. tel: [phone] Associates Juan Pablo Dysfunctional Aug-2 León In Womens Uterine 3-201 Nora. Health ASNCHEZ, BleedingEncounter 6 700 PO Box for initial Medical 1522, prescription of Elias Kevin, contraceptive , [facility], pillsEncounter 120, , for surveillance [place] Juan Pablo of other [place], tel: contraceptivesEnc [phone] ounter [facility] , [place]. surveillance of tel: other [phone] contraceptives Associates Juan Pablo Right lower Caleb-2 León In Womens quadrant pain 9- Nora. Health PA, 6 700 PO Box Medical 1522, [place] [address] [place], [place], 120, , [place], [place], tel:[phone] , [place]. tel:[phone] Associates Juan Pablo Oth May-0 León In Womens noninflammatory - Nora. Health SANCHEZ, disorders of 6 700 PO Box vulva and Medical 1522, perineum [address] [place], 120, , [place], [place], tel:+ [phone] , [place]. tel:[phone] Associates Juan Pablo Oth May-0 Jeanie In Womens noninflammatory - Rebecca. Health PA, disorders of 6 700 PO Box vulva and Medical 1522, perineumEncntr [facility], screen for U[place], infections w sexl 120, , mode of transmiss Juan Pablo [place], tel:+ [phone] , [place]. tel: [phone] Associates Juan Pablo Dysfunctional Apr-0 León In Womens Uterine - Nora. Health SANCHEZ, BleedingEncounter 6 700 PO Box for surveillance Medical 1522, of other [place], contraceptives Umesh Chamberlain, 120, , [facility] [place], tel:+ [phone] , [place]. tel:[phone] Associates Juan Pablo Encounter for Dec-0 León In Womens test, Nora. 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 tel:[phone] Associates Juan Pablo Caleb-2 Jeanie In Womens 2-201 Rebecca. Health SANCHEZ, 5 700 PO Box Medical 1522, [place] [address] [place], 120, , [facility] [place], tel:+ [phone] , [place]. tel: [phone] Tatiana [place] Jan- León In Womens 9-201 Nora. Critical access hospital, 5 700 PO [facility] 1522, [place] [address] [place], [facility] [place], 120, [id number], [facility] [place], tel:+ [phone] , [place]. tel: [phone] Tatiana [place] Apr- Jeanie In Womens 8-201 Rebecca. Critical access hospital, 1 700 PO [facility] 15[address], [place] [address] [place], [facility] [place], 120, [id number], [facility] [place], tel: [phone] , [place]. tel: [phone] Family History Family Member Diagnosis Age At [...] Record Payers Payer name Insurance type Covered alliance party ID Authorization(s) [facility] [id number] [employer] [place] [employer] - Medicaid [place] [id number] [facility] [id number] [employer] [place] [employer] - Medicaid [place] [id number] Social History Type Description Quantity Date Captured [...] Future Order: Radiology Order Ultrasound OB Follow-up (33181) Ordered Future Order: Radiology Order Complete OB Ultrasound > 14 Ordered Weeks ([id number]) Date Type Problem Goal Intervention Status Start [...] belt use childbirth classes / hospital facilities indications for ultrasound influenza vaccine environmental / work hazards travel tobacco (ask, advise, assess, assist and arrange) alcohol illicit / recreational drugs use of any medications (including supplements, vitamins, herbs, OTC drugs) HIV and other routine tests hospital registration genetic testing new ob handbook Giving encouragement to exercise Related to Body mass index 27.0-27.9 Lifestyle education regarding diet Related to Body mass index 27.0-27.9 Giving encouragement to exercise Related to Body mass index 27.0-27.9 Lifestyle education regarding diet Related to Body mass index 27.0-27.9
[2017-07-09] MEDS ORDERED: ACETAMINOPHEN 500 MG TABLET PO PRN ×2 (12:27→18:49)
[2017-07-09] MEDS ORDERED: METHYLERGONOVINE 0.2 MG/ML INJECTION IM PRN (12:27)
[2017-07-09] MEDS ORDERED: LIDOCAINE 1% (10mg/ml) 2mL INJ PF SDV ID PRN (12:27)
[2017-07-09] MEDS ORDERED: MAG-AL + SIM ORAL LIQUID 30ml PO PRN (12:27)
[2017-07-09] MEDS ORDERED: CALCIUM CARBONATE Chewable 500mg TABLET PO PRN ×2 (12:27→18:49)
[2017-07-09] MEDS ORDERED: CARBOPROST 250 MCG/ML INJECTION IM PRN (12:27)
[2017-07-09] MEDS: LR 1,000 ML IV PRN ×2 (12:53→14:15)
[2017-07-09 12:55] VITALS: BMI 31.8
[2017-07-09] MEDS ORDERED: CLINDAMYCIN PB 600 MG/50 ML BAG IV ONE (14:10)
[2017-07-09] MEDS ORDERED: FAMOTIDINE PB 20 MG/50 ML BAG IV ONE (14:10)
[2017-07-09] MEDS ORDERED: GENTAMICIN PB 120 MG/100 ML BAG IV ONE (14:10)
[2017-07-09] MEDS ORDERED: CITRIC ACID/SODIUM CITRATE 30ml PO ONE (14:10)
[2017-07-09] MEDS ORDERED: AZITHROMYCIN IV 500 MG in NS 250ml 250 ML IV ONE (14:13)
--- NOTE | 2017-07-09 14:17 | OB/GYN Progress Note ---
- Pain Control Pain control: Epidural Comments: Pain controlled - Pelvic Exam Dilation (cm): 3 Effacement (%): 50 station: -3 Amniotic membrane status: Ruptured Comments: SSE Lession C/W with HSV seen at the 3 oclock position 2 cm from hymenal ring in vagina - Contractions Monitor mode: External Contraction pattern: Regular Contraction intensity: Strong/Firm - Status status: Category l - Assessment and Plan Assessment: active labor Comments: Discussed lesion and possibility of active HSV along with risk of vertical transmission and risk of infection. Discussed recommendations for PLTCS. Pt desires BLTL, consent has been signed previously and has desired sterilization throughout . Discussed R/B/A to procedure, Question elicited and answered. Will proceed with PLTCS/BLTL.
[2017-07-09] MEDS ORDERED: MORPHINE SULFATE PF 5mg/10ml INJ (Duramorph) ONE (14:36)
[2017-07-09] MEDS ORDERED: FentaNYL 100 MCG/2 ML INJECTION ONE (14:36)
[2017-07-09] MEDS ORDERED: ONDANSETRON 4 MG/2 ML INJECTION ONE (14:48)
[2017-07-09] MEDS ORDERED: ROPIVACAINE 1% 10MG/ML INJ 200 MG, SUFentanil 50 MCG in NS 80 ML EPI PRN (15:00)
[2017-07-09] MEDS ORDERED: BUPIVACAINE 0.25% (2.5mg/ml) PF 30ml INJECTION ONE (17:11)
--- NOTE | 2017-07-09 17:28 | Operative Note ---
Operative Note - Date of Operation Date of Operation: 07/09/17 - General : 3 Para: 1 Expected Date of Delivery: 07/18/17 Estimated or Known Gestational Age (weeks): 38 - Preoperative Diagnosis Preoperative Diagnosis: HSV with active lesion Labor SROM Desires permanent sterilization - Postoperative Diagnosis same as preoperative - Surgeon Surgeon: Ar Garcia MD - Palliative Medicine Physician Nima Hicks MD - Anesthesia Anesthesia Provider: Sebastián Eaton CRNA Anesthesia Type: Epidural - Complications Complications: None - Estimated Blood Loss Estimated Blood Loss:: 600 - Findings Findings: viable female - APGARS : 8/9 - Weight 2922 kg - [place] Name Name: Roberta Summers - Indications Indications: HSV with active lesion - Description of Procedure Description of Procedure: See dictation
--- NOTE | 2017-07-09 17:43 | Anesthesia Preoperative Report ---
Anesthesia Epidural/Spinal Rec - Date and Time Date: 07/09/17 Procedure: Labor Epidural Plan: Epidural - Vital Signs Vital Signs: Temperature 97.6 F 07/09/17 12:55 Pulse Rate 72 07/09/17 12:55 Respiratory Rate 18 07/09/17 12:55 Blood Pressure 134/78 07/09/17 12:55 /Para: P:1 - Medictaions & Allergies Inpatient Medications: Current Medications Acetaminophen (Tylenol) 500 - 1,000 mg PO Q4H PRN PRN Reason: Pain Al Hydroxide/Mg Hydroxide (Maalox Plus) 30 ml PO Q3H PRN PRN Reason: Indigestion Calcium Carbonate (Tums) 500 - 1,000 mg PO Q2H PRN PRN Reason: Indigestion Carboprost Tromethamine (Hemabate) 250 mcg IM O PRN PRN Reason: .Downtime Lactated Ringer's (Lactated Ringers) 1,000 mls @ 125 mls/hr IV .Q8H PRN Last Admin: 07/09/17 14:15 Dose: 125 mls/hr Lidocaine HCl (Xylocaine-Mpf 1% Vial) 0.2 mg ID O PRN PRN Reason: IV Start Methylergonovine Maleate (Methergine) 0.2 mg IM O PRN Misoprostol (Cytotec) 800 mcg RI ONCE PRN Allergies/Adverse Reactions: Allergies Allergy/AdvReac Type Severity Reaction Status Date / Time cephalexin Allergy Severe Rash Verified 04/17/17 22:07 Penicillins Allergy Severe Swelling Verified 04/17/17 22:07 of Lip/Tongue/Throat - Home Medications Home Medications: Home Medications Medication Instructions Recorded Confirmed Type Butalbital/Acetaminophen 1 tab PO PRN PRN 07/06/17 07/09/17 History [Butalbital-Acetaminophn 50-300] Hydralazine [Apresoline] 1 tab PO [facility] 07/06/17 07/09/17 History Vit 108/Iron/Folic AC 1 each PO DAILY 07/06/17 07/09/17 History [ One Tablet] Valacyclovir [Valtrex] 1 tab PO BID 07/06/17 07/09/17 History - Medical History Respiratory: DENIES: Asthma, Bronchitis, Chronic Obstructive Pulmonary Disease (COPD), Dyspnea, Orthopnea, Pulmonary Embolism, Pneumonia, Upper Respiratory Infection, Pulmonary Edema, Sleep Apnea, Tuberculosis, Other Cardiovascular: DENIES: Abnormal EKG, Angina, Arrhythmia, Congestive Heart Failure, Coronary Artery Disease, Heart Murmur, Hypertension, Hypotension, High Cholesterol, Myocardial Infarction, Rheumatic Fever, Valvular Heart Disease, Other Gastrointestional: Reports: Gastroesophageal Reflux Disease (early on in ) Other History: Reports: Now, Other (HSV) - Surgical History Anesthesia Reactions: None Hx Family Anesthesia Reaction: No History of Motion Sickness: No - Social History Smoking Status: Never smoker Substance Use Type: does not use - Pertinent Findings Lab Data: CBC and BMP 07/09/17 12:45 EKG Rhythm: Normal Sinus Rhythm - Physical Exam Respiratory Exam: lungs clear, bilateral breath sounds equal Cardiovascular Exam: regular rate and rhythm, no murmur - Airway Assessment Mallampati Score: II TMD: 3 Fingerbreadths Neck Extension: good Overall Assessment: may be difficult intubation - ASA ASA Score: 2 - Discussion Discussion: Discussed risks/options/alternatives of anesthesia and questions answered. Patient consents. Nursing pain assessment noted. Anesthesia Discussion: spouse Attestation Statement: Prior to the delivery of any anesthetic medication, I examined the patient, developed the plan, obtained the patient's consent and discussed the risk and benefits of the procedure with the patient/guardian.
[2017-07-09] MEDS ORDERED: ONDANSETRON 4 MG/2 ML INJECTION IVP PRN (18:01)
[2017-07-09] MEDS ORDERED: NALOXONE 2 MG/2 ML INJECTION PFS IVP PRN (18:01)
[2017-07-09] MEDS ORDERED: DiphenhydrAMINE 50 MG/ML INJECTION IVP PRN (18:01)
[2017-07-09] MEDS ORDERED: DiphenhydrAMINE 25 MG CAPSULE PO PRN (18:49)
[2017-07-09] MEDS ORDERED: METOCLOPRAMIDE 10mg/2ml INJECTION IVP PRN (18:49)
[2017-07-09] MEDS ORDERED: HYDROCORTISONE 2.5% CREAM 30gm RECTALLY PRN (18:49)
[2017-07-09] MEDS ORDERED: SIMETHICONE 80 MG CHEWABLE TABLET PO PRN (18:49)
[2017-07-09] MEDS ORDERED: OXYTOCIN DRIP 30 UNIT/500 ML ML IV SCH (18:49)
[2017-07-09] MEDS: IBUPROFEN 800 MG TABLET PO PRN (18:53)
[2017-07-09] MEDS: HYDROCODONE/APAP 5mg/325mg TABLET PO PRN (19:32)
[2017-07-09] MEDS ORDERED: CLINDAMYCIN PB 600 MG/50 ML BAG IV SCH (20:00)
[2017-07-09] MEDS: SIMETHICONE 80 MG CHEWABLE TABLET PO SCH (22:15)
[2017-07-09] MEDS: D5LR 1,000 ML IV SCH (22:16)
[2017-07-10] MEDS: HYDROCODONE/APAP 5mg/325mg TABLET PO PRN ×4 (00:22→21:19)
[2017-07-10] MEDS: IBUPROFEN 800 MG TABLET PO PRN ×3 (04:28→23:45)
--- NOTE | 2017-07-10 08:12 | OB/GYN Progress Note ---
OB-PP Progress Note - General PPD1 POD:: POD1 Maternal Group B Strep: Negative Maternal blood type: B- Maternal Rubella Status: Immune - Subjective Date: 07/10/17 Lochia: Minimal Pain: contolled Voiding: luong still in place Nausea or Vomiting Present: No - Objective Vital Signs: Last Vital Signs Temp 97.8 F 07/10/17 04:30 Pulse 98 07/10/17 04:30 Resp 16 07/10/17 04:30 BP 114/68 07/10/17 04:30 Pulse Ox 100 07/10/17 04:30 Urine Output: good General: alert and oriented Abdomen: fundus firm, non-tender Incision: dressed Extremities: non-tender Edema: none Laboratory: Laboratory Results - last 24 hr 07/09/17 07/09/17 07/09/17 12:45 12:45 18:49 WBC 10.7 RBC 4.04 Hgb 11.1 L Hct 32.2 L MCV 79.7 L MCH 27.5 MCHC 34.5 RDW Std Deviation 35.7 L Plt Count 242 MPV 11.8 Hgb /Adult Ratio Blood Type B Negative Antibody Screen Positive A* Antibody Identification Immune D RhIG Candidate? Is a candidate 07/09/17 07/09/17 21:55 21:55 WBC 11.5 H RBC 3.72 L Hgb 10.0 L Hct 29.9 L MCV 80.4 MCH 26.9 MCHC 33.4 RDW Std Deviation 35.4 L Plt Count 198 MPV 10.9 Hgb /Adult Ratio 0.0000 Blood Type Antibody Screen Antibody Identification RhIG Candidate? - Assessment Assessment: Primary C/S, Tubal Ligation - Plan Plan: routine care
--- NOTE | 2017-07-10 09:15 | Operative Note ---
DATE OF SURGERY: 07/09/2017 PREOPERATIVE DIAGNOSIS 1. 27-year-old female, G3, P1, at 38 weeks 4 days gestational age. 2. Spontaneous labor and spontaneous rupture of membranes. 3. Herpes simplex virus lesion. 4. Maternal blood type Rh negative. 5. Desires permanent sterilization. POSTOPERATIVE DIAGNOSIS 1. Female , 2922 g (6 pounds and 7 ounces), 8/9 Apgars. 2. Occiput-posterior presentation. PROCEDURE: Primary low transverse section and modified Amalia tubal ligation for active herpes lesion. ANESTHESIA: Epidural catheter dosing by Sebastián Eaton CRNA. SURGEON: Ar Garcia MD PELTS SKINNER: Nima Hicks MD COMPLICATIONS: None. BRIEF DESCRIPTION This is a patient of mine who came in today with spontaneous labor and spontaneous rupture of membranes. She was initially 4 cm dilated. After SROM, she underwent an epidural block and Dr. Hicks did an exam and found a herpes lesions, so she was converted to . Initial start of the was delayed slightly for an emergent . Cervical check just prior to the start of the had her cervix 5 cm and the was very high up position. At delivery the infant was found to be in the OP presentation. DESCRIPTION OF PROCEDURE After adequate epidural anesthesia, the patient was prepped and draped in the left lateral decubitus position. A Pfannenstiel skin incision was made with a sharp knife and carried down the fascia, which was incised transversely with the Acevedo scissors. The rectus fascia was bluntly and sharply dissected off the rectus muscle. The rectus muscle was divided, and the peritoneum was isolated, elevated, entered with the Metzenbaum scissors and extended cephalad and caudad. The bladder blade was then inserted. The lower vesicouterine fold of the peritoneum was isolated and incised transversely. The bladder was bluntly dissected off the lower uterine segment. The bladder blade was reinserted. Then using a sharp knife, a transverse incision was made in the lower uterine segment. This was extended with my fingers. Female infant was for delivered from the vertex OP presentation. was bulb suctioned after delivery of the head and then again after delivery of the body. Cord was doubly clamped and cut and the infant was received by Dr. José Miguel Salinas of pediatrics. The placenta was expressed manually and was intact. The uterus was then allowed to fall upon the external abdominal wall. The endometrial cavity was cleansed using moist lap sponges. The uterus was closed using 0-Monocryl in a running locking fashion. Hemostasis was confirmed. The bladder flap was then reapproximated with the visceral peritoneum using 3-0 Vicryl in a running nonlocking fashion. The posterior cul-de-sac was cleansed of old blood clots and the tubes and ovaries were examined and found to be normal in size, shape and appearance. Our attention was then turned to tubal ligation. The right fallopian tube was isolated and then a mid-isthmic portion of the tube was grasped with the [place] clamp, elevated and then a knuckle of the tube was ligated using 2-0 chromic. A Pili clamp was passed through the meso of the tube and then the proximal and distal aspects of the knuckle of the tube were ligated using 2-0 silk. The knuckle of the tube was excised and sent to surgical pathology for lumen confirmation. This procedure was then repeated on the left side and hemostasis was confirmed. After hemostasis was again confirmed, the uterus was then carefully returned to the abdominal cavity. The abdomen was then closed in layers. The peritoneum was closed using 2-0 Vicryl in running nonlocking fashion. The fascia was closed using 0-Vicryl in a running nonlocking fashion bilaterally from the lateral aspects medially. Hemostasis was achieved with the subcutaneous tissue and then the skin was closed using wide clair in a serial fashion. The patient tolerated the procedure well and went to the recovery room in stable condition. Pad, sponge and needle counts were correct and urine postop was clear and free flowing. MTDD
[2017-07-10] MEDS: SIMETHICONE 80 MG CHEWABLE TABLET PO SCH ×4 (09:21→21:20)
[2017-07-10] MEDS: DOCUSATE CALCIUM 240 MG CAPSULE PO SCH (09:21)
[2017-07-10] MEDS: ACYCLOVIR 200 MG CAPSULE PO SCH ×3 (09:34→21:19)
[2017-07-10] MEDS: D5LR 1,000 ML IV SCH (17:47)
[2017-07-10] MEDS ORDERED: RHO(D) IMMUNE GLOBULIN 300 MCG/2 ML INJECTION IVP ONE (18:56)
--- NOTE | 2017-07-10 19:00 | Pharmacy Consult ---
Pharmacy Consult-Rhophylac - Laboratory Information 07/09/17 07/09/17 07/09/17 12:45 18:49 21:55 Hgb /Adult Ratio 0.0000 Blood Type B Negative RhIG Candidate? Is a candidate - Consult Information Rh FACTOR CONSULT: Mother Blood Type = B negative Child Blood Type = B positive Hgb / Adult Ratio = 0.000 Will give Rho D Immunoglobulin 300mcg IV x 1 dose. Thank you. Yaz Ortiz [facility]
--- NOTE | 2017-07-10 19:27 | Anesthesia Postoperative Note ---
- Date and Time Date: 07/10/17 Time: 18:40 - Status Patient Participated in Evaluation: Patient Participated in Person Vital Signs: Temperature 98.6 F 07/10/17 17:00 Pulse Rate 67 07/10/17 17:00 Respiratory Rate 16 07/10/17 17:00 Blood Pressure 126/65 07/10/17 17:00 Pulse Oximetry 98 07/10/17 17:00 Respiratory Function: Airway Patent Cardiovascular Function: Regular Pulse Mental Status: Alert and Oriented Pain Intensity: 3 Hydration: Taking PO Fluids Complications During Recover: None Apparent Post Anesthesia Care Notes: full motor and sensation returned - Follow-Up Instructions Instructions: Per Surgeon
--- NOTE | 2017-07-10 19:43 | Anesthesia Postoperative Note ---
- Date and Time Date: 07/10/17 Time: 18:40 - Status Patient Participated in Evaluation: Patient Participated in Person Vital Signs: Temperature 98.6 F 07/10/17 17:00 Pulse Rate 67 07/10/17 17:00 Respiratory Rate 16 07/10/17 17:00 Blood Pressure 126/65 07/10/17 17:00 Pulse Oximetry 98 07/10/17 17:00 Respiratory Function: Airway Patent Cardiovascular Function: Regular Pulse Mental Status: Alert and Oriented Pain Intensity: 2 Hydration: Taking PO Fluids Complications During Recover: None Apparent Post Anesthesia Care Notes: full motor and sensation has returned - Follow-Up Instructions Instructions: Per Surgeon
[2017-07-10] MEDS ORDERED: RHO(D) IMMUNE GLOBULIN 300 MCG/2 ML INJECTION IM ONE (21:22)
[2017-07-11] MEDS: HYDROCODONE/APAP 5mg/325mg TABLET PO PRN ×2 (03:45→09:08)
[2017-07-11 03:54] VITALS: BP 126/76; PULSE 69
--- NOTE | 2017-07-11 08:15 | OB/GYN Progress Note ---
<Dennise Nathan J - Last Filed: 07/11/17 08:12> OB-PP Progress Note - General PPD1 POD:: POD2 - Subjective Date: 07/11/17 Lochia: Moderate Pain: contolled Voiding: voiding Nausea or Vomiting Present: No - Objective Vital Signs: Last Vital Signs Temp 98.1 F 07/11/17 03:53 Pulse 69 07/11/17 03:53 Resp 16 07/11/17 03:53 BP 126/76 07/11/17 03:53 Pulse Ox 98 07/11/17 03:53 Urine Output: good General: alert and oriented Abdomen: fundus firm Incision: intact Extremities: non-tender Edema: none - Assessment Assessment: Primary C/S - Plan Plan: routine care (Patient would like to go home this evening after 48hrs. ) <Ar Garcia R - Last Filed: 07/11/17 17:44> OB-PP Progress Note - General PPD2 - Subjective Date: 07/11/17 - Objective Vital Signs: Last Vital Signs Temp 98.2 F 07/11/17 09:03 Pulse 69 07/11/17 09:03 Resp 18 07/11/17 09:03 BP 126/76 07/11/17 03:53 Pulse Ox 99 07/11/17 09:03
[2017-07-11 09:04] VITALS: RESP 18; TEMP 98.2; O2SAT 99
[2017-07-11] MEDS: SIMETHICONE 80 MG CHEWABLE TABLET PO SCH (09:09)
[2017-07-11] MEDS: DOCUSATE CALCIUM 240 MG CAPSULE PO SCH (09:10)
[2017-07-11] MEDS: ACYCLOVIR 200 MG CAPSULE PO SCH (09:12)
[2017-07-11] MEDS: IBUPROFEN 800 MG TABLET PO PRN (09:21)
--- NOTE | 2017-07-11 12:37 | OB/GYN Progress Note ---
OB-Progress Note Free Text - Date Date: 07/11/17 - Progress Note Progress Note: doing well incision c/d/i fu for clair Monday or q&a
--- NOTE | 2017-07-11 12:42 | Discharge Instructions ---
Discharge Plan - Med Rec/Dispo Referrals/Follow Up: Ar Garcia MD [Physician] - 3 Days Prescriptions: New Ibuprofen [Motrin] 800 mg PO Q8H PRN #30 tab PRN Reason: Pain Hydrocodone/APAP 5/325 [[place] 5/325] 1 - 2 tab PO Q4H PRN #24 tab PRN Reason: Pain Continue Vit 108/Iron/Folic AC [ One Tablet] 1 each PO DAILY Discontinued Hydralazine [Apresoline] 1 tab PO [facility] Butalbital/Acetaminophen [Butalbital-Acetaminophn 50-300] 1 tab PO PRN PRN PRN Reason: Headache Valacyclovir [Valtrex] 1 tab PO BID - Disposition 01 Discharged Home, Self-Care
== END 2017-07-11 14:30 | disposition home or self-care (01) | DRG 766 ==
LOC: OBOBS 12:04 → MC 12:07
PROVIDERS: ADMIT Obstetrics & Gynecology; ATTEND Obstetrics & Gynecology